=== PATIENT | male | born 1945 | race Caucasian/White ===

== ENCOUNTER → 2018-06-28 07:00 | Outpatient (CLI) | payer MEDICARE, OTHER, SELFPAY ==
[2018-06-28 08:18] LABS: Alanine Aminotransferase 37 IU/L (21-72); Albumin 4.5 g/dL (3.5-5.0); Albumin Globulin Ratio 1.6 (1.0-2.8); Alkaline Phosphatase 68 U/L (38-126); Aspartate Aminotransferase 36 IU/L (17-59); BUN Creatinine Ratio 16.7 (6-22); Bilirubin Total 0.5 mg/dL (0.2-1.3); Blood Urea Nitrogen 35 mg/dL (9-20); Calcium 9.5 mg/dL (8.4-10.2); Carbon Dioxide 27 mmol/L (22-32); Chloride 102 mmol/L (98-107); Cholesterol 244 mg/dL (140-199); Estimated Glomerular Filt Rate 30.9 mL/min (>60); Globulin 2.9 g/dL (1.7-4.1); Glucose 107 mg/dL (80-110); HDL Cholesterol 34 mg/dL (40-60); HEMOLYSIS < 15 (0-50); Potassium 3.8 mmol/L (3.4-5.1); Sodium 139 mmol/L (137-145); Total Protein 7.4 g/dL (6.3-8.2)
[2018-06-28 08:21] LABS: Hematocrit 44.4 % (41-53); Hemoglobin 15.6 g/dL (13.5-17.5); Mean Corpuscular HGB Conc 35.2 % (30-36); Mean Corpuscular Volume 99.4 fL (80-100); Platelet Count 252 X10^3/uL (150-400); Red Blood Cell Count 4.47 X10^6/uL (4.5-5.9); Red Cell Distribution Width 12.7 % (11.6-14.8); White Blood Cell Count 5.7 X10^3/uL (4.5-11.0)
[2018-06-28 08:25] LABS: Triglycerides 1553 mg/dL (35-150)
[2018-06-28 08:38] LABS: Creatinine Urine Random 109.5 mg/dL
[2018-06-28 08:45] LABS: Microalbumi Creatinin Ratio Ur 5.4 ug/mg CR (<30); Microalbumin Urine Random < 0.6 mg/dL (0-1.6)
[2018-06-28 08:54] LABS: Hemoglobin A1C% w Est Avg Glu 6.5 % (4.0-6.0)
[2018-06-28 09:08] LABS: TSH w/ Reflex to FT4 6.13 uIU/mL (0.47-4.68)
[2018-06-28 09:35] LABS: Free T4, Direct Thyroxine 0.74 ng/dL (0.78-2.19)
== END ==
PROVIDERS: PCP Family Medicine; Visit Provider Family Medicine
DX: E11.9 Type 2 diabetes mellitus without complications (principal); E78.5 Hyperlipidemia, unspecified; I10 Essential (primary) hypertension; N18.2 Chronic kidney disease, stage 2 (mild)
CPT/HCPCS: 36415; 80053; 80061; 82043; 82570; 83036; 84439; 84443; 85027

== ENCOUNTER 2018-08-15 06:53 | Day surgery (SDC) | payer MEDICARE, OTHER, SELFPAY ==
[2018-08-15] MEDS: PROPARACAINE 0.5% OPHTH SOL 2 DROPS EYE-OP (07:40)
[2018-08-15] MEDS: CATARACT EYE COMPOUND (10 DROPS/SYRINGE) 3 DROPS EYE-OP (07:47)
[2018-08-15 07:58] VITALS: BP 178/88; PULSE 55; RESP 16; TEMP 36.7; O2SAT 96; BMI 32.0
--- NOTE | 2018-08-15 08:48 | PM.PREOP ---
Pre-operative Note Interval Note History & Physical reviewed/Exam performed by Physician: No Changes to H&P: No
--- NOTE | 2018-08-15 08:48 | PM.OP.1 ---
Operative Date/Time/Diagnoses Pre-op diagnosis: Nuclear cataract right eye Procedure & Clinicians Procedure: Cataract Surgery Same procedure as scheduled: Yes Surgeon: Js Doty Anesthesia Type: MAC +/- and Sedation Operative Notes Procedure in detail: Patient brought to the operating suite. Tetracaine drops placed in the right eye. Patient was prepped and draped in sterile manner. Wire lid speculum was placed in the eye. Betadine drops were placed on the eye. This was irrigated. Lidocaine jelly was placed on the eye. A paracentesis port was created with a side-port blade. 0.1 mL 1% preservative free lidocaine was injected into the anterior chamber. The anterior chamber was deepened with viscoelastic. 2.6 mm keratome was used to create a temporal clear corneal incision. Cystotome and Utrata forceps were used to create continuous tear capsulorrhexis. Balanced salt solution was used to hydro dissect the nucleus. The phacoemulsification handpiece was inserted and the nucleus was removed using the stop and chop technique. The irrigation aspiration handpiece was inserted and the remaining cortex was removed. Anterior chamber was deepened with viscoelastic. An Tadeo ZCB00 intraocular lens with a power of 21.0 was injected into the capsular bag. Irrigation aspiration handpiece was inserted and the remaining viscoelastic was removed. Incision was hydrated with balanced salt solution and found to be leak free with pressure with Weck-Tri sponges. 0.1 mL Vigamox injected anterior chamber. 0.3 mL Kenalog 10 mg was injected subconjunctivally. Lid speculum was removed. The patient left the operating room in excellent condition. Complications: none Condition: stable Disposition: same day surgery
[2018-08-15] MEDS: PHENYLEPHRINE/LIDOCAINE VIAL (OR) 0.2 ML EYE-OP (09:13)
[2018-08-15] MEDS: TRIAMCINOLONE 50 MG/5 ML VIAL INJ (09:13)
[2018-08-15] MEDS: MOXIFLOXACIN OPHTH DROPS 3 ML BOTTLE 2 DROPS INJ (09:13)
[2018-08-15] MEDS: LIDOCAINE JELLY 2% 5 ML 1 APPLIC TOP (09:14)
[2018-08-15] MEDS: CHONDROIDTIN/SOD HYALURONATE 1.05 ML SYRINGE INTRAOCULA (09:14)
[2018-08-15] MEDS: BALANCED SALT IRRIG SOLN NO.2 500 ML, EPINEPHrine 1 MG IRR (09:14)
[2018-08-15] MEDS: TETRACAINE 0.5% OPHTH DROPS 4 ML 2 DROPS EYE-OP (09:14)
[2018-08-15 09:24] VITALS: BP 142/87; PULSE 54; RESP 20; TEMP 36.6; O2SAT 95
== END 2018-08-15 09:31 | disposition home or self-care (01) ==
LOC: OR 06:54
PROVIDERS: PCP Family Medicine; Visit Provider Ophthalmology
DX: H25.11 Age-related nuclear cataract, right eye (principal); E11.9 Type 2 diabetes mellitus without complications; Z79.4 Long term (current) use of insulin; I10 Essential (primary) hypertension
CPT/HCPCS: J0171; J2250; J3010; J3301

== ENCOUNTER 2018-08-29 06:58 | Day surgery (SDC) | payer MEDICARE, OTHER, SELFPAY ==
[2018-08-29] MEDS: PROPARACAINE 0.5% OPHTH SOL 2 DROPS EYE-OP (07:20)
[2018-08-29] MEDS: CATARACT EYE COMPOUND (10 DROPS/SYRINGE) 3 DROPS EYE-OP (07:31)
[2018-08-29 07:35] VITALS: BP 167/89; PULSE 56; RESP 16; TEMP 36.1; O2SAT 97
--- NOTE | 2018-08-29 08:12 | PM.PREOP ---
Pre-operative Note Interval Note History & Physical reviewed/Exam performed by Physician: No Changes to H&P: No
--- NOTE | 2018-08-29 08:12 | PM.OP.1 ---
Operative Date/Time/Diagnoses Pre-op diagnosis: Nuclear Cataract Left eye Post-op diagnosis: same Procedure & Clinicians Surgeon: Js Doty Anesthesia Type: MAC +/- and Sedation Operative Notes Procedure in detail: Patient brought to the operating suite. Tetracaine drops placed in the left eye. Patient was prepped and draped in sterile manner. Wire lid speculum was placed in the eye. Betadine drops were placed on the eye. This was irrigated. Lidocaine jelly was placed on the eye. A paracentesis port was created with a side-port blade. 0.1 mL 1% preservative free lidocaine was injected into the anterior chamber. The anterior chamber was deepened with viscoelastic. 2.6 mm keratome was used to create a temporal clear corneal incision. Cystotome and Utrata forceps were used to create continuous tear capsulorrhexis. Balanced salt solution was used to hydro dissect the nucleus. The phacoemulsification handpiece was inserted and the nucleus was removed using the stop and chop technique. The irrigation aspiration handpiece was inserted and the remaining cortex was removed. Anterior chamber was deepened with viscoelastic. An Tadeo ZCB00 intraocular lens with a power of 21.0 was injected into the capsular bag. Irrigation aspiration handpiece was inserted and the remaining viscoelastic was removed. Incision was hydrated with balanced salt solution and found to be leak free with pressure with Weck-Tri sponges. 0.1 mL Vigamox injected anterior chamber. 0.3 mL Kenalog 10 mg was injected subconjunctivally. Lid speculum was removed. The patient left the operating room in excellent condition. Complications: none Condition: stable Disposition: same day surgery
[2018-08-29] MEDS: MOXIFLOXACIN OPHTH DROPS 3 ML BOTTLE 2 DROPS INJ (08:26)
[2018-08-29] MEDS: TRIAMCINOLONE 50 MG/5 ML VIAL INJ (08:26)
[2018-08-29] MEDS: PHENYLEPHRINE/LIDOCAINE VIAL (OR) 0.2 ML EYE-OP (08:26)
[2018-08-29] MEDS: LIDOCAINE JELLY 2% 5 ML 1 APPLIC TOP (08:27)
[2018-08-29] MEDS: TETRACAINE 0.5% OPHTH DROPS 4 ML 2 DROPS EYE-OP (08:27)
[2018-08-29] MEDS: CHONDROIDTIN/SOD HYALURONATE 1.05 ML SYRINGE INTRAOCULA (08:27)
[2018-08-29] MEDS: BALANCED SALT IRRIG SOLN NO.2 500 ML, EPINEPHrine 1 MG IRR (08:28)
[2018-08-29 08:39] VITALS: BP 139/80; PULSE 75; RESP 16; TEMP 36.6; O2SAT 96
== END 2018-08-29 08:48 | disposition home or self-care (01) ==
LOC: OR 06:59
PROVIDERS: PCP Family Medicine; Visit Provider Ophthalmology
DX: H25.12 Age-related nuclear cataract, left eye (principal); E11.9 Type 2 diabetes mellitus without complications; I10 Essential (primary) hypertension; Z79.4 Long term (current) use of insulin
CPT/HCPCS: J0171; J2250; J3301

== ENCOUNTER → 2018-10-06 06:57 | Outpatient (CLI) | payer MEDICARE, OTHER, SELFPAY ==
[2018-10-06 08:32] LABS: BUN Creatinine Ratio 16.3 (6-22); Blood Urea Nitrogen 31 mg/dL (9-20); Carbon Dioxide 30 mmol/L (22-32); Chloride 104 mmol/L (98-107); Cholesterol 211 mg/dL (140-199); Estimated Glomerular Filt Rate 34.7 mL/min (>60); Glucose 108 mg/dL (80-110); HDL Cholesterol 48 mg/dL (40-60); HEMOLYSIS < 15 (0-50); LDL Cholesterol Calculated 92 mg/dL (<100); Potassium 4.2 mmol/L (3.4-5.1); Sodium 141 mmol/L (137-145); Triglycerides 353 mg/dL (35-150)
[2018-10-06 09:01] LABS: TSH w/ Reflex to FT4 7.74 uIU/mL (0.47-4.68)
[2018-10-06 09:28] LABS: Free T4, Direct Thyroxine 0.83 ng/dL (0.78-2.19)
== END ==
PROVIDERS: PCP Family Medicine; Visit Provider Family Medicine
DX: E11.9 Type 2 diabetes mellitus without complications (principal); N18.2 Chronic kidney disease, stage 2 (mild); I12.9 Hypertensive chronic kidney disease with stage 1 through stage 4 chronic kidney disease, or unspecified chronic kidney disease
CPT/HCPCS: 36415; 80048; 80061; 83036; 84439; 84443

== ENCOUNTER → 2019-01-01 06:59 | Outpatient (CLI) | payer MEDICARE, OTHER, SELFPAY ==
[2019-01-01 08:25] LABS: Hemoglobin A1C% w Est Avg Glu 6.1 % (4.0-6.0)
[2019-01-01 08:55] LABS: BUN Creatinine Ratio 18.8 (6-22); Blood Urea Nitrogen 32 mg/dL (9-20); Calcium 9.8 mg/dL (8.4-10.2); Carbon Dioxide 27 mmol/L (22-32); Chloride 103 mmol/L (98-107); Estimated Glomerular Filt Rate 39.5 mL/min (>60); Glucose 145 mg/dL (80-110); HEMOLYSIS 15 (0-50); Potassium 4.4 mmol/L (3.4-5.1); Sodium 139 mmol/L (137-145)
== END ==
PROVIDERS: PCP Family Medicine; Visit Provider Family Medicine
DX: E11.9 Type 2 diabetes mellitus without complications (principal)
CPT/HCPCS: 36415; 80048; 83036; 84443

== ENCOUNTER → 2019-07-03 07:00 | Outpatient (CLI) | payer MEDICARE, OTHER, SELFPAY ==
[2019-07-03 07:55] LABS: Blood Urea Nitrogen 27 mg/dL (9-20); Calcium 9.9 mg/dL (8.4-10.2); Carbon Dioxide 27 mmol/L (22-32); Chloride 106 mmol/L (98-107); Estimated Glomerular Filt Rate 36.9 mL/min (>60); Glucose 93 mg/dL (80-110); HEMOLYSIS < 15 (0-50); Potassium 3.9 mmol/L (3.4-5.1); Sodium 140 mmol/L (137-145)
[2019-07-03 08:09] LABS: Hemoglobin A1C% w Est Avg Glu 6.8 % (4.0-6.0)
== END ==
PROVIDERS: PCP Family Medicine; Referring Provider Family Medicine; Visit Provider Family Medicine
DX: E03.9 Hypothyroidism, unspecified (principal); E11.9 Type 2 diabetes mellitus without complications; I10 Essential (primary) hypertension; N18.2 Chronic kidney disease, stage 2 (mild)
CPT/HCPCS: 36415; 80048; 83036; 84443

== ENCOUNTER → 2019-10-09 07:18 | Outpatient (CLI) | payer MEDICARE, OTHER, SELFPAY ==
[2019-10-09 08:10] LABS: Hematocrit 42.2 % (41-53); Hemoglobin 15.3 g/dL (13.5-17.5); Mean Corpuscular HGB Conc 36.1 % (30-36); Mean Corpuscular Hemoglobin 36.2 PG (26-34); Mean Corpuscular Volume 100.3 fL (80-100); Platelet Count 251 X10^3/uL (150-400); Red Blood Cell Count 4.21 X10^6/uL (4.5-5.9); Red Cell Distribution Width 12.7 % (11.6-14.8)
[2019-10-09 08:21] LABS: Alanine Aminotransferase 30 IU/L (<50); Albumin 4.5 g/dL (3.5-5.0); Albumin Globulin Ratio 1.5 (1.0-2.8); Alkaline Phosphatase 76 U/L (38-126); Aspartate Aminotransferase 38 IU/L (17-59); Bilirubin Total 1.2 mg/dL (0.2-1.3); Blood Urea Nitrogen 41 mg/dL (9-20); Carbon Dioxide 23 mmol/L (22-32); Chloride 106 mmol/L (98-107); Cholesterol 278 mg/dL (140-199); Estimated Glomerular Filt Rate 33.6 mL/min (>60); Glucose 168 mg/dL (80-110); HDL Cholesterol 42 mg/dL (40-60); HEMOLYSIS < 15 (0-50); Potassium 4.4 mmol/L (3.4-5.1); Sodium 139 mmol/L (137-145); Total Protein 7.5 g/dL (6.3-8.2)
[2019-10-09 08:36] LABS: Hemoglobin A1C% w Est Avg Glu 6.8 % (4.0-6.0)
[2019-10-09 08:44] LABS: Triglycerides 753 mg/dL (35-150)
[2019-10-09 10:03] LABS: Creatinine Urine Random 107.1 mg/dL
[2019-10-09 10:07] LABS: Microalbumi Creatinin Ratio Ur 29.8 ug/mg CR (<30); Microalbumin Urine Random 3.2 mg/dL (0-1.6)
[2019-10-09 10:35] LABS: TSH w/ Reflex to FT4 5.02 uIU/mL (0.47-4.68)
[2019-10-09 11:01] LABS: Free T4, Direct Thyroxine 0.79 ng/dL (0.78-2.19)
[2019-10-09 11:22] LABS: Neutrophils Absolute Manual 3430 /uL (3000-5900); RBC Morphology Normal Morphology; Total Cells Counted 100
== END ==
PROVIDERS: PCP Family Medicine; Referring Provider Family Medicine; Visit Provider Family Medicine
DX: E03.9 Hypothyroidism, unspecified (principal); E11.9 Type 2 diabetes mellitus without complications; E78.5 Hyperlipidemia, unspecified; N18.2 Chronic kidney disease, stage 2 (mild)
CPT/HCPCS: 36415; 80053; 80061; 82043; 82570; 83036; 84439; 84443; 85025

== ENCOUNTER → 2020-04-15 06:57 | Outpatient (CLI) | payer MEDICARE, OTHER, SELFPAY ==
[2020-04-15 08:22] LABS: Add Manual Diff / Slide Review NO; Basophils Absolute Auto 100 /uL (0-100); Basophils Percent Auto 1.5 % (0-2); Eosinophils Absolute Auto 300 /uL (0-450); Eosinophils Percent Auto 5.5 % (2-4); Hematocrit 41.5 % (41-53); Hemoglobin 14.5 g/dL (13.5-17.5); Lymphocytes Absolute Auto 1900 /uL (1100-4500); Lymphocytes Percent Auto 32.4 % (25-40); Mean Corpuscular Hemoglobin 35.3 PG (26-34); Mean Corpuscular Volume 100.8 fL (80-100); Monocytes Absolute Auto 900 /uL (0-900); Monocytes Percent Auto 14.8 % (3-14); Neutrophils Absolute Auto 2700 /uL (1500-7000); Neutrophils Percent Auto 45.8 % (50-75); Platelet Count 240 X10^3/uL (150-400); Red Blood Cell Count 4.11 X10^6/uL (4.5-5.9); Red Cell Distribution Width 12.9 % (11.6-14.8); White Blood Cell Count 5.9 X10^3/uL (4.5-11.0)
[2020-04-15 08:29] LABS: Alanine Aminotransferase 30 IU/L (<50); Albumin 4.2 g/dL (3.5-5.0); Albumin Globulin Ratio 1.6 (1.0-2.8); Alkaline Phosphatase 80 U/L (38-126); Aspartate Aminotransferase 33 IU/L (17-59); BUN Creatinine Ratio 17.1 (6-22); Bilirubin Total 0.9 mg/dL (0.2-1.3); Blood Urea Nitrogen 29 mg/dL (9-20); Calcium 9.6 mg/dL (8.4-10.2); Carbon Dioxide 28 mmol/L (22-32); Chloride 106 mmol/L (98-107); Cholesterol 276 mg/dL (140-199); Estimated Glomerular Filt Rate 39.4 mL/min (>60); Globulin 2.7 g/dL (1.7-4.1); Glucose 128 mg/dL (80-110); HDL Cholesterol 38 mg/dL (40-60); Potassium 4.1 mmol/L (3.4-5.1); Sodium 138 mmol/L (137-145); Total Protein 6.9 g/dL (6.3-8.2)
[2020-04-15 08:35] LABS: Hemoglobin A1C% w Est Avg Glu 7.1 % (4.0-6.0)
[2020-04-15 08:55] LABS: TSH w/ Reflex to FT4 4.53 uIU/mL (0.47-4.68)
[2020-04-15 14:14] LABS: Triglycerides 1252 mg/dL (35-150)
[2020-04-16 13:54] LABS: HEMOLYSIS 17 (0-50)
== END ==
PROVIDERS: PCP Family Medicine; Referring Provider Family Medicine; Visit Provider Family Medicine
DX: E03.9 Hypothyroidism, unspecified (principal); E11.9 Type 2 diabetes mellitus without complications; E78.5 Hyperlipidemia, unspecified; I10 Essential (primary) hypertension; N18.2 Chronic kidney disease, stage 2 (mild)
CPT/HCPCS: 36415; 80053; 80061; 83036; 84443; 85025

== ENCOUNTER → 2020-10-16 06:46 | Outpatient (CLI) | payer MEDICARE, OTHER, SELFPAY ==
[2020-10-16 08:08] LABS: Add Manual Diff / Slide Review NO; Basophils Absolute Auto 100 /uL (0-100); Eosinophils Absolute Auto 400 /uL (0-450); Eosinophils Percent Auto 5.4 % (2-4); Hematocrit 43.5 % (41-53); Hemoglobin 15.4 g/dL (13.5-17.5); Lymphocytes Absolute Auto 2200 /uL (1100-4500); Mean Corpuscular HGB Conc 35.5 % (30-36); Mean Corpuscular Hemoglobin 35.7 PG (26-34); Mean Corpuscular Volume 100.7 fL (80-100); Monocytes Absolute Auto 1300 /uL (0-900); Monocytes Percent Auto 17.6 % (3-14); Neutrophils Absolute Auto 3400 /uL (1500-7000); Platelet Count 233 X10^3/uL (150-400); Red Blood Cell Count 4.32 X10^6/uL (4.5-5.9); Red Cell Distribution Width 12.9 % (11.6-14.8); White Blood Cell Count 7.3 X10^3/uL (4.5-11.0)
[2020-10-16 08:30] LABS: Creatinine Urine Random 113.1 mg/dL
[2020-10-16 08:31] LABS: Alanine Aminotransferase 36 IU/L (<50); Albumin 4.4 g/dL (3.5-5.0); Albumin Globulin Ratio 1.7 (1.0-2.8); Alkaline Phosphatase 68 U/L (38-126); Aspartate Aminotransferase 36 IU/L (17-59); BUN Creatinine Ratio 15.2 (6-22); Blood Urea Nitrogen 29 mg/dL (9-20); Calcium 10.3 mg/dL (8.4-10.2); Carbon Dioxide 24 mmol/L (22-32); Chloride 106 mmol/L (98-107); Cholesterol 248 mg/dL (140-199); Estimated Glomerular Filt Rate 34.3 mL/min (>60); Globulin 2.6 g/dL (1.7-4.1); Glucose 104 mg/dL (80-110); HDL Cholesterol 41 mg/dL (40-60); HEMOLYSIS < 15 (0-50); Potassium 4.4 mmol/L (3.4-5.1); Sodium 141 mmol/L (137-145)
[2020-10-16 08:33] LABS: Hemoglobin A1C% w Est Avg Glu 6.9 % (4.0-6.0)
[2020-10-16 08:34] LABS: Microalbumin Urine Random 0.8 mg/dL (0-1.6)
[2020-10-16 08:39] LABS: Triglycerides 632 mg/dL (35-150)
[2020-10-16 08:45] LABS: Thyroid Stimulating Hormone 6.36 uIU/mL (0.47-4.68)
== END ==
PROVIDERS: PCP Family Medicine; Referring Provider Family Medicine; Visit Provider Family Medicine
DX: E03.9 Hypothyroidism, unspecified (principal); E11.9 Type 2 diabetes mellitus without complications; E78.2 Mixed hyperlipidemia; I10 Essential (primary) hypertension; I50.20 Unspecified systolic (congestive) heart failure; N18.2 Chronic kidney disease, stage 2 (mild)
CPT/HCPCS: 36415; 80053; 80061; 82043; 82570; 83036; 84443; 85025

== ENCOUNTER → 2021-04-22 07:06 | Outpatient (CLI) | payer MEDICARE, OTHER, SELFPAY ==
[2021-04-22 08:50] LABS: Hemoglobin A1C% w Est Avg Glu 6.3 % (4.0-6.0)
[2021-04-22 08:58] LABS: BUN Creatinine Ratio 14.2 (6-22); Blood Urea Nitrogen 26 mg/dL (9-20); Calcium 10.1 mg/dL (8.4-10.2); Carbon Dioxide 28 mmol/L (22-32); Chloride 105 mmol/L (98-107); Estimated Glomerular Filt Rate 36.1 mL/min (>60); Glucose 139 mg/dL (80-110); HEMOLYSIS < 15 (0-50); Potassium 4.5 mmol/L (3.4-5.1); Sodium 139 mmol/L (137-145)
== END ==
PROVIDERS: PCP Family Medicine; Referring Provider Family Medicine; Visit Provider Family Medicine
DX: I10 Essential (primary) hypertension (principal); E03.9 Hypothyroidism, unspecified
CPT/HCPCS: 36415; 80048; 83036; 84443

== ENCOUNTER → 2021-10-14 06:59 | Outpatient (CLI) | payer MEDICARE, OTHER, SELFPAY ==
[2021-10-14 07:47] LABS: BUN Creatinine Ratio 16.2 (6-22); Blood Urea Nitrogen 28 mg/dL (9-20); Calcium 9.7 mg/dL (8.4-10.2); Carbon Dioxide 27 mmol/L (22-32); Chloride 106 mmol/L (98-107); Cholesterol 187 mg/dL (140-199); Estimated Glomerular Filt Rate 40 mL/min (>60); Glucose 101 mg/dL (80-110); HDL Cholesterol 46 mg/dL (40-60); HEMOLYSIS < 15 (0-50); LDL Cholesterol Calculated 69 mg/dL (<100); Potassium 4.5 mmol/L (3.4-5.1); Sodium 142 mmol/L (137-145); Triglycerides 360 mg/dL (35-150)
[2021-10-14 07:50] LABS: Hemoglobin A1C% w Est Avg Glu 6.8 % (4.0-6.0)
[2021-10-14 08:18] LABS: Thyroid Stimulating Hormone 2.75 uIU/mL (0.47-4.68)
== END ==
PROVIDERS: PCP Family Medicine; Referring Provider Family Medicine; Visit Provider Family Medicine
DX: E11.9 Type 2 diabetes mellitus without complications (principal); E78.2 Mixed hyperlipidemia; I10 Essential (primary) hypertension; Z79.4 Long term (current) use of insulin; E03.9 Hypothyroidism, unspecified
CPT/HCPCS: 36415; 80048; 80061; 83036; 84443

== ENCOUNTER → 2022-04-12 06:59 | Outpatient (CLI) | payer MEDICARE, OTHER, SELFPAY ==
[2022-04-12 08:55] LABS: Add Manual Diff / Slide Review NO; Basophils Absolute Auto 100 /uL (0-100); Basophils Percent Auto 1.4 % (0-2); Eosinophils Absolute Auto 400 /uL (0-450); Eosinophils Percent Auto 5.4 % (2-4); Hemoglobin 14.9 g/dL (13.5-17.5); Lymphocytes Absolute Auto 2600 /uL (1100-4500); Lymphocytes Percent Auto 33.4 % (25-40); Mean Corpuscular HGB Conc 35.4 % (30-36); Mean Corpuscular Hemoglobin 35.6 PG (26-34); Mean Corpuscular Volume 100.5 fL (80-100); Monocytes Absolute Auto 1200 /uL (0-900); Neutrophils Absolute Auto 3500 /uL (1500-7000); Neutrophils Percent Auto 44.8 % (50-75); Platelet Count 251 X10^3/uL (150-400); Red Blood Cell Count 4.18 X10^6/uL (4.5-5.9); Red Cell Distribution Width 12.8 % (11.6-14.8); White Blood Cell Count 7.8 X10^3/uL (4.5-11.0)
[2022-04-12 09:32] LABS: Alanine Aminotransferase 34 IU/L (<50); Albumin 4.3 g/dL (3.5-5.0); Alkaline Phosphatase 75 U/L (38-126); Aspartate Aminotransferase 30 IU/L (17-59); BUN Creatinine Ratio 14.3 (6-22); Bilirubin Total 0.8 mg/dL (0.2-1.3); Blood Urea Nitrogen 26 mg/dL (9-20); Calcium 9.8 mg/dL (8.4-10.2); Carbon Dioxide 25 mmol/L (22-32); Chloride 105 mmol/L (98-107); Cholesterol 205 mg/dL (140-199); Estimated Glomerular Filt Rate 38 mL/min (>60); Globulin 2.2 g/dL (1.7-4.1); Glucose 112 mg/dL (80-110); HDL Cholesterol 44 mg/dL (40-60); HEMOLYSIS < 15 (0-50); Potassium 4.2 mmol/L (3.4-5.1); Sodium 139 mmol/L (137-145); Total Protein 6.5 g/dL (6.3-8.2); Triglycerides 432 mg/dL (35-150)
[2022-04-12 10:03] LABS: TSH w/ Reflex to FT4 3.36 uIU/mL (0.47-4.68)
[2022-04-12 13:47] LABS: Creatinine Urine Random 94.6 mg/dL
[2022-04-12 13:50] LABS: Microalbumi Creatinin Ratio Ur 7.3 ug/mg CR (<30); Microalbumin Urine Random 0.7 mg/dL (0-1.6)
[2022-04-13 18:22] LABS: Hemoglobin A1C% w Est Avg Glu 7.1 % (4.0-6.0)
== END ==
PROVIDERS: PCP Family Medicine; Referring Provider Family Medicine; Visit Provider Family Medicine
DX: E11.9 Type 2 diabetes mellitus without complications (principal)
CPT/HCPCS: 36415; 80053; 80061; 82043; 82570; 83036; 84443; 85025

== ENCOUNTER → 2022-10-15 06:57 | Outpatient (CLI) | payer MEDICARE, OTHER, SELFPAY ==
[2022-10-15 08:07] LABS: BUN Creatinine Ratio 14.3 (6-22); Blood Urea Nitrogen 28 mg/dL (9-20); Calcium 9.9 mg/dL (8.4-10.2); Carbon Dioxide 26 mmol/L (22-32); Chloride 104 mmol/L (98-107); Estimated Glomerular Filt Rate 34 mL/min (>60); Glucose 83 mg/dL (80-110); HEMOLYSIS < 15 (0-50); Potassium 4.7 mmol/L (3.4-5.1); Sodium 139 mmol/L (137-145)
[2022-10-16 03:36] LABS: x Labcorp Estim. Avg Glu (eAG) 140 mg/dL (.); x Labcorp Hemoglobin A1c 6.5 % (4.8-5.6)
== END ==
PROVIDERS: PCP Family Medicine; Referring Provider Family Medicine; Visit Provider Family Medicine
DX: E11.9 Type 2 diabetes mellitus without complications (principal)
CPT/HCPCS: 36415; 80048; 83036

== ENCOUNTER → 2022-12-09 | Outpatient (CLI) | payer MEDICARE, OTHER, SELFPAY ==
--- NOTE | 2022-12-09 14:56 | DI.RAD.S_ITS ---
PROCEDURE: XR KNEE RT 3V INDICATIONS: right knee medial pain TECHNIQUE: 3 views of the knee were acquired. COMPARISON: None. FINDINGS: Bones: No fractures or dislocations. No suspicious bony lesions. Tricompartmental periarticular osteophyte formation. Soft tissues: No joint effusion. No suspicious soft tissue calcifications. IMPRESSION: Minimal periarticular osteophyte formation; otherwise definite radiographic abnormality. If pain persists with conservative management, consider cross sectional imaging such as CT or MRI for further assessment. Dictated by: Terence RAMIRES Interpreted: Tk Holley MD on 12/09/2022 at 20:39 Transcribed by: SUSAN on 12/09/2022 at 20:40 Approved by: Tk Holley M.D. on 12/20/2022 at 17:44
== END ==
PROVIDERS: PCP Family Medicine; Referring Provider Family Medicine; Visit Provider Family Medicine
DX: M25.561 Pain in right knee (principal)
CPT/HCPCS: 73562

== ENCOUNTER → 2023-04-14 06:51 | Outpatient (CLI) | payer MEDICARE, OTHER, SELFPAY ==
[2023-04-14 08:43] LABS: Hemoglobin A1C% w Est Avg Glu 6.7 % (4.0-6.0)
[2023-04-14 09:28] LABS: Creatinine Urine Random 102.1 mg/dL
[2023-04-14 09:32] LABS: Microalbumi Creatinin Ratio Ur 8.8 ug/mg CR (<30); Microalbumin Urine Random 0.9 mg/dL (0-1.6)
== END ==
PROVIDERS: PCP Family Medicine; Referring Provider Family Medicine; Visit Provider Family Medicine
DX: E11.9 Type 2 diabetes mellitus without complications (principal); Z79.4 Long term (current) use of insulin
CPT/HCPCS: 36415; 82043; 82570; 83036

== ENCOUNTER → 2023-06-07 15:12 | Outpatient (CLI) | payer MEDICARE, OTHER, SELFPAY | LOC: RESP 15:14 | PROVIDERS: PCP Family Medicine; Referring Provider Orthopaedic Surgery Foot and Ankle Surgery; Visit Provider Orthopaedic Surgery Foot and Ankle Surgery | DX: Z01.818 Encounter for other preprocedural examination (principal) | CPT/HCPCS: 93005 ==

== ENCOUNTER → 2023-06-24 10:31 | Outpatient (CLI) | payer MEDICARE, OTHER, SELFPAY ==
[2023-06-24 12:24] LABS: Hemoglobin A1C% w Est Avg Glu 6.7 % (4.0-6.0)
[2023-06-24 12:25] LABS: Add Manual Diff / Slide Review NO; Basophils Absolute Auto 100 /uL (0-100); Basophils Percent Auto 1.2 % (0-2); Eosinophils Absolute Auto 300 /uL (0-450); Eosinophils Percent Auto 3.7 % (2-4); Hematocrit 42.1 % (41-53); Hemoglobin 14.9 g/dL (13.5-17.5); Lymphocytes Absolute Auto 2500 /uL (1100-4500); Lymphocytes Percent Auto 29.9 % (25-40); Mean Corpuscular HGB Conc 35.3 % (30-36); Mean Corpuscular Hemoglobin 35.2 PG (26-34); Mean Corpuscular Volume 99.6 fL (80-100); Monocytes Absolute Auto 1000 /uL (0-900); Neutrophils Absolute Auto 4500 /uL (1500-7000); Neutrophils Percent Auto 53.2 % (50-75); Platelet Count 230 X10^3/uL (150-400); Red Blood Cell Count 4.23 X10^6/uL (4.5-5.9); Red Cell Distribution Width 13.3 % (11.6-14.8); White Blood Cell Count 8.4 X10^3/uL (4.5-11.0)
[2023-06-24 12:44] LABS: Alanine Aminotransferase 27 IU/L (<50); Albumin 4.3 g/dL (3.5-5.0); Albumin Globulin Ratio 1.5 (1.0-2.8); Alkaline Phosphatase 72 U/L (38-126); Aspartate Aminotransferase 27 IU/L (17-59); BUN Creatinine Ratio 16.8 (6-22); Bilirubin Total 1.5 mg/dL (0.2-1.3); Blood Urea Nitrogen 30 mg/dL (9-20); Calcium 9.5 mg/dL (8.4-10.2); Carbon Dioxide 22 mmol/L (22-32); Chloride 105 mmol/L (98-107); Cholesterol 188 mg/dL (140-199); Estimated Glomerular Filt Rate 38 mL/min (>60); Globulin 2.9 g/dL (1.7-4.1); Glucose 169 mg/dL (80-110); HDL Cholesterol 46 mg/dL (40-60); HEMOLYSIS < 15 (0-50); Sodium 140 mmol/L (137-145); Total Protein 7.2 g/dL (6.3-8.2); Triglycerides 447 mg/dL (35-150)
== END ==
PROVIDERS: PCP Family Medicine; Referring Provider Family Medicine; Visit Provider Family Medicine
DX: D64.9 Anemia, unspecified (principal); E11.9 Type 2 diabetes mellitus without complications; N18.9 Chronic kidney disease, unspecified; I10 Essential (primary) hypertension
CPT/HCPCS: 36415; 80053; 80061; 83036; 85025

== ENCOUNTER → 2023-10-18 06:48 | Outpatient (CLI) | payer MEDICARE, OTHER, SELFPAY ==
[2023-10-18 08:43] LABS: Add Manual Diff / Slide Review NO; Basophils Absolute Auto 200 /uL (0-100); Basophils Percent Auto 1.8 % (0-2); Eosinophils Absolute Auto 600 /uL (0-450); Eosinophils Percent Auto 6.8 % (2-4); Hematocrit 41.1 % (41-53); Hemoglobin 14.6 g/dL (13.5-17.5); Lymphocytes Absolute Auto 2800 /uL (1100-4500); Lymphocytes Percent Auto 32.3 % (25-40); Mean Corpuscular HGB Conc 35.6 % (30-36); Mean Corpuscular Hemoglobin 35.7 PG (26-34); Mean Corpuscular Volume 100.5 fL (80-100); Monocytes Absolute Auto 1200 /uL (0-900); Monocytes Percent Auto 13.7 % (3-14); Neutrophils Absolute Auto 4000 /uL (1500-7000); Neutrophils Percent Auto 45.4 % (50-75); Platelet Count 261 X10^3/uL (150-400); Red Blood Cell Count 4.09 X10^6/uL (4.5-5.9); Red Cell Distribution Width 13.6 % (11.6-14.8); White Blood Cell Count 8.8 X10^3/uL (4.5-11.0)
[2023-10-18 08:56] LABS: Hemoglobin A1C% w Est Avg Glu 6.8 % (4.0-6.0)
[2023-10-18 09:20] LABS: Alanine Aminotransferase 26 IU/L (<50); Albumin 4.3 g/dL (3.5-5.0); Alkaline Phosphatase 85 U/L (38-126); Aspartate Aminotransferase 30 IU/L (17-59); BUN Creatinine Ratio 16.5 (6-22); Bilirubin Total 0.8 mg/dL (0.2-1.3); Blood Urea Nitrogen 33 mg/dL (9-20); Calcium 9.7 mg/dL (8.4-10.2); Carbon Dioxide 26 mmol/L (22-32); Chloride 107 mmol/L (98-107); Cholesterol 203 mg/dL (140-199); Estimated Glomerular Filt Rate 33 mL/min (>60); Globulin 2.2 g/dL (1.7-4.1); Glucose 146 mg/dL (80-110); HDL Cholesterol 44 mg/dL (40-60); HEMOLYSIS < 15 (0-50); Potassium 4.6 mmol/L (3.4-5.1); Sodium 140 mmol/L (137-145); Total Protein 6.5 g/dL (6.3-8.2)
[2023-10-18 09:37] LABS: Triglycerides 677 mg/dL (35-150)
[2023-10-18 10:51] LABS: Creatinine Urine Random 111.09 mg/dL
[2023-10-18 10:58] LABS: Microalbumin Urine Random 1.3 mg/dL (0-1.6)
== END ==
PROVIDERS: PCP Family Medicine; Referring Provider Family Medicine; Visit Provider Family Medicine
DX: D64.9 Anemia, unspecified (principal); E11.9 Type 2 diabetes mellitus without complications
CPT/HCPCS: 36415; 80053; 80061; 82043; 82570; 83036; 85025

== ENCOUNTER → 2024-04-10 07:02 | Outpatient (CLI) | payer MEDICARE, OTHER, SELFPAY ==
[2024-04-10 11:13] LABS: Hemoglobin A1C% w Est Avg Glu 6.1 % (4.0-6.0)
[2024-04-10 13:22] LABS: BUN Creatinine Ratio 15.1 (6-22); Blood Urea Nitrogen 33 mg/dL (9-20); Calcium 9.7 mg/dL (8.4-10.2); Carbon Dioxide 22 mmol/L (22-32); Chloride 109 mmol/L (98-107); Estimated Glomerular Filt Rate 30 mL/min (>60); Glucose 117 mg/dL (80-110); HEMOLYSIS 25 (0-50); Potassium 4.7 mmol/L (3.4-5.1); Sodium 137 mmol/L (137-145)
== END ==
PROVIDERS: PCP Family Medicine; Referring Provider Family Medicine; Visit Provider Family Medicine
DX: E11.9 Type 2 diabetes mellitus without complications (principal)
CPT/HCPCS: 36415; 80048; 83036

== ENCOUNTER → 2024-05-08 07:41 | Outpatient (CLI) | payer MEDICARE, OTHER, SELFPAY ==
--- NOTE | 2024-05-08 07:44 | DI.ECHO.S_ITS ---
[facility] : : [id number] : [place] : : [id number] : : Phone: [phone] Echocardiogram Report + + :Name: OCTAVIO LABOY Study Date: 05/08/2024 Height: 68 in : :[facility] ReadingLocation: Weight: 205 lb : : Gender: Male BSA: 2.1 m2 : :: 1945 Age: 78 yrs BP: 160/90 mmHg: :Reason For Study: COMPARE TO PREVIOUS ECHO RESULTS : :Ordering Physician: CRYSTAL, : :YULISA Performed By: Maria Eugenia Boston : :Referring: YULISA ROJAS : + + Interpretation Summary 1) Normal left ventricular thickness, size, and systolic function (EF 60-65%). 2) Mildly enlarged right ventricle with normal function. 3) No significant valvular abnormalities. 4) There is mild aortic stenosis (valve area 1.8cm2, mean gradient 8mmHg). 5) Compared to the Echo done 09/12/2011, mild aortic stenosis is present on this study/ Procedure: A two-dimensional transthoracic echocardiogram with color flow and Doppler was performed. The study quality was technically difficult. Comparison is made with the echocardiogram of 09/22/2011. The patient was in sinus bradycardia with heart rates between 47-53 bpm during the exam. Left Ventricle: The left ventricle is normal in size. Proximal septal thickening is noted. The ejection fraction is estimated to be 60-65%. Septal bounce present. Right Ventricle: The right ventricle is mildly dilated. The right ventricular systolic function is normal. Atria: The left atrium is mildly dilated. Right atrial size is normal. There is no Doppler evidence for an interatrial shunt. Mitral Valve: The mitral valve leaflets appear to open well. There is mild mitral regurgitation. Aortic Valve: The aortic valve is trileaflet. There is mild aortic valve sclerosis. The aortic valve is mildly calcified. The peak aortic velocity is 1.8 m/sec. The aortic valve mean gradient is 8 mmHg. The calculated aortic valve area is 1.8 cm2. There is mild aortic stenosis. No aortic regurgitation is present. Tricuspid Valve: The tricuspid valve leaflets are thin and pliable. There is trace tricuspid regurgitation. The right ventricular systolic pressure is estimated to be at least 24 mmHg based on an estimated right atrial pressure of 3 mm Hg. Pulmonic Valve: The pulmonic valve is not well seen, but is grossly normal. There is trace pulmonic regurgitation. Great Vessels: The aortic root is normal size. The dimensions of the ascending aorta are normal. The IVC is of normal diameter and collapses greater than 50% with a sniff. This suggests a low right atrial pressure of 3 mm Hg. Pericardium/ Pleura There is no pericardial effusion. There is no pleural effusion. MMode/2D Measurements & Calculations LVIDd: 4.2 cm LVOT diam: 2.0 cm LVIDs: 2.7 cm Ao root diam: 3.0 cm FS: 35.8 % asc Aorta Diam: 3.6 cm IVSd: 0.93 cm Ao Arch Diam (Prox Trans): 3.2 cm LVPWd: 0.96 cm LV padilla. diameter/BSA (cm/m^2): 2.0 LV sys. diameter/BSA (cm/m^2): 1.3 LA A2 area: 24.6 cm2 RA long axis: 5.6 cm LA A4 area: 22.7 cm2 RA area: 17.2 cm2 LA length (vol): 6.0 cm RA vol: 44.7 ml LA vol: 78.8 ml RA : 21.6 ml/m2 LA vol index: 38.2 ml/m2 IVC diam: 1.9 cm RVD1 (basal): 4.3 cm RVD2 (mid): 3.9 cm TAPSE: 1.9 cm Doppler Measurements & Calculations Ao V2 max: 184.1 cm/sec LVOT Max Jaime: 103.2 cm/sec Ao V2 mean: 130.2 cm/sec LV V1 max P.3 mmHg Ao max P.8 mmHg LV V1 VTI: 30.2 cm Ao mean P.1 mmHg MARISOL(I,D): 2.1 cm2 Ao V2 VTI: 45.8 cm MARISOL(V,D): 1.8 cm2 sev ratio: 0.66 MARISOL indexed to BSA (cm^2/m^2): 1.0 MV E max jaime: 74.1 cm/sec TR max jaime: 229.4 cm/sec MV A max jaime: 80.2 cm/sec TR max P.1 mmHg MV E/A: 0.92 PA V2 max: 104.6 cm/sec Med Peak E' Jaime: 4.9 cm/sec PA V2 mean: 74.9 cm/sec E/E' med: 15.1 PA mean P.4 mmHg Lat Peak E' Jaime: 7.2 cm/sec PA pr(Accel): 51.6 mmHg E/E' lat: 10.2 E/e' average: 12.7 MV dec time: 0.19 sec SV(LVOT): 97.0 ml Reading Physician:03:07 PM
== END ==
PROVIDERS: PCP Family Medicine; Referring Provider Family Medicine; Visit Provider Family Medicine
DX: I08.0 Rheumatic disorders of both mitral and aortic valves (principal); I50.20 Unspecified systolic (congestive) heart failure
CPT/HCPCS: 93306

== ENCOUNTER → 2024-08-03 11:41 | Outpatient (CLI) | payer MEDICARE, OTHER, SELFPAY | LOC: LAB 11:42 | PROVIDERS: PCP Family Medicine; Referring Provider Family Medicine; Visit Provider Family Medicine | DX: R19.7 Diarrhea, unspecified (principal) | CPT/HCPCS: 83993; 87177; 87205 ==

== ENCOUNTER 2024-09-04 16:28 | Inpatient (IN) | payer MEDICARE, OTHER, SELFPAY ==
[2024-09-04] VITALS (23 sets, daily range): BP systolic 103–184; BP diastolic 58–92; PULSE 87–109; RESP 18–36; TEMP 37–39.4; O2SAT 90–94; BMI 31.1
--- NOTE | 2024-09-04 16:57 | EKG_ITS ---
[address] [address] Test Date: 2024-09-04 Pat Name: Jin Mayer Department: Room: Gender: Male [employer] Clerk: : 1945 Requested By: Order Number: [id number] Reading MD: Sam Betts Measurements Intervals Eldred Rate: 91 P: 33 NV: 178 QRS: 24 QRSD: 94 T: -13 QT: 360 QTc: 442 Interpretive Statements Sinus rhythm with premature atrial complexes Cannot rule out Inferior infarct , age undetermined Electronically Signed On 09-05-2024 17:39:53 PDT by Sam Betts
--- NOTE | 2024-09-04 17:00 | DI.RAD.S_ITS ---
PROCEDURE: XR CHEST 1V INDICATIONS: chest pain TECHNIQUE: One view of the chest was acquired. COMPARISON: No previous study is available for comparison at the time of this dictation. FINDINGS: Surgical changes and devices: Dense material projects over the left lower chest wall. Lungs and pleura: Lungs are clear. No pleural effusions or pneumothorax. Mediastinum: Mediastinal contours appear normal. Heart size is normal. Bones and chest wall: No suspicious bony lesions. Overlying soft tissues appear unremarkable. IMPRESSION: Presumed postsurgical or posttreatment changes in the left chest. No acute cardiopulmonary abnormality is seen. Approved by: Wilver Hinds M.D. on 09/04/2024 at 17:25
[2024-09-04 17:12] LABS: Add Manual Diff / Slide Review NO; Basophils Absolute Auto 100 /uL (0-100); Basophils Percent Auto 0.9 % (0-2); Eosinophils Absolute Auto 0 /uL (0-450); Eosinophils Percent Auto 0.2 % (2-4); Hematocrit 44.7 % (41-53); Hemoglobin 15.7 g/dL (13.5-17.5); Lymphocytes Absolute Auto 2000 /uL (1100-4500); Lymphocytes Percent Auto 15.1 % (25-40); Mean Corpuscular Hemoglobin 35.5 PG (26-34); Mean Corpuscular Volume 101.4 fL (80-100); Monocytes Absolute Auto 800 /uL (0-900); Monocytes Percent Auto 5.9 % (3-14); Neutrophils Absolute Auto 10600 /uL (1500-7000); Neutrophils Percent Auto 77.9 % (50-75); Platelet Count 276 X10^3/uL (150-400); Prothrombin Time 10.9 SECONDS (9.4-12.5); Red Blood Cell Count 4.41 X10^6/uL (4.5-5.9); Red Cell Distribution Width 13.5 % (11.6-14.8); White Blood Cell Count 13.5 X10^3/uL (4.5-11.0)
[2024-09-04 17:15] LABS: PTT Partial Thromboplastin Tim 25 SECONDS (25.1-36.5)
[2024-09-04 17:18] LABS: Alanine Aminotransferase 35 IU/L (<50); Albumin 4.6 g/dL (3.5-5.0); Albumin Globulin Ratio 1.8 (1.0-2.8); Alkaline Phosphatase 72 U/L (38-126); Aspartate Aminotransferase 38 IU/L (17-59); BUN Creatinine Ratio 16.3 (6-22); Bilirubin Total 1.4 mg/dL (0.2-1.3); Blood Urea Nitrogen 28 mg/dL (9-20); Calcium 9.5 mg/dL (8.4-10.2); Carbon Dioxide 21 mmol/L (22-32); Chloride 107 mmol/L (98-107); Creatine Kinase 85 U/L (55-170); Estimated Glomerular Filt Rate 39 mL/min (>60); Globulin 2.5 g/dL (1.7-4.1); Glucose 182 mg/dL (70-99); HEMOLYSIS 22 (0-50); Lipase 207 U/L (23-300); Magnesium 1.2 mg/dL (1.6-2.3); Potassium 3.7 mmol/L (3.4-5.1); Sodium 140 mmol/L (137-145); Total Protein 7.1 g/dL (6.3-8.2)
[2024-09-04 17:29] LABS: NT-proBNP (BNP-Adult 18+) 48 pg/mL (<450); Troponin I < 0.012 ng/mL (0.01-0.034)
--- NOTE | 2024-09-04 17:48 | PC.NURSE ---
Pt arrived to dept with because he has been having seizure like episodes preceded by syncope. Pt had episode at home and and called EMS. EMS recommended pt be transported to ED, but pt declined. Pt a&Ox4 at this time and able to stand for transfer from wheelchair to bed. 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
--- NOTE | 2024-09-04 18:08 | ED.SEIZURE ---
HPI - Seizure General Chief Complaint: Seizure Stated Complaint: vomiting, eyes rolling in back of head, seizures? Time Seen by Provider: 09/04/24 17:58 History of Present Illness HPI Narrative: 79-year-old male has no reported history of known seizures, no known cardiac dysrhythmias, 2 weeks ago had eye-rolling episode and collapse and refused EMS transport for evaluation, he had another episode of eye rolling earlier today and also refused EMS but did not collapse, had eye clinic appointment and while in the bathroom there had another episode of transient weakness sensation generalized that was unwitnessed and apparently not known to eye clinic staff, at home patient had another episode witnessed by , with eye rolling, no shaking, no incontinence, no collapse, brief and resolved without specific treatment. He would not recall any sensation of palpitations or chest pain or shortness of breath. No diaphoresis. That was at rest and not with any particular activities. Quick resolution of symptoms. Feels well now. also reports that she was on recent vacation ocean cruise with family members who had nausea vomiting diarrhea and suspected norovirus, on return 2 days ago patient had nausea vomiting, when outpatient seemed to have nausea and vomiting, nonbloody. Patient has had recent episodes of nausea and nonbloody emesis as well. Related Data Home Medications Medication Instructions Recorded Confirmed cholecalciferol (vitamin D3) 125 125 mcg PO DAILY 10/15/19 09/05/24 mcg (5,000 unit) capsule Adult Low Dose Aspirin 81 mg PO 3XW 09/05/24 09/05/24 hydrochlorothiazide 25 mg tablet 25 mg PO DAILY 09/05/24 09/05/24 Previous Rx's Medication Instructions Recorded Pen needles #100 ea 06/28/22 epinephrine 0.3 mg/0.3 mL 0.3 mg (0.3 mL) IM Q5-15M PRN 02/14/23 injection, auto-injector anaphylaxis #2 ea losartan 50 mg tablet 50 mg PO DAILY #90 tabs 03/02/24 atorvastatin 40 mg tablet 40 mg PO DAILY #90 tabs 04/16/24 metoprolol succinate 25 mg 25 mg PO BID #180 tabs 04/16/24 tablet,extended release 24 hr levothyroxine 75 mcg tablet 75 mcg PO DAILY #90 tabs 04/30/24 DISABLED PARKING PERMIT #1 ea 05/07/24 insulin glargine 100 unit/mL (3 40 unit (0.4 mL) SUBCUT QPM #15 mL 05/30/24 mL) subcutaneous pen pen needle, diabetic 32 gauge x #100 ea 08/08/24 (TRUEplus Pen Needle) Allergies Allergy/AdvReac Type Severity Reaction Status Date / Time codeine [CODEINE] Allergy Mild vertigo Verified 08/16/24 13:57 venom-honey bee Allergy Mild dizzy, Verified 08/16/24 13:57 [BEE VENOM (HONEY BEE)] world Eniram spinning Patient History Medical History (Updated 09/05/24 @ 09:32 by Billy Orona MD) Kidney stones Diabetes mellitus Hypertension Hyperlipidemia Chronic renal failure, stage 2 (mild) Surgical History (Updated 04/21/23 @ 10:20 by Billy Orona MD) History of inguinal hernia repair Status post appendectomy History of vasectomy History of splenectomy History of nephrectomy Family History Mother No problems noted. Social History marital status: household members: spouse Smoking Status: Never smoker alcohol intake: current substance use type: does not use Smoking Status: Never smoker Alcohol type: wine Exam Narrative Exam Narrative: GENERAL: Well-developed patient, in mild distress. HEAD: Atraumatic. Normocephalic. EYES: Pupils equal round and reactive. Extraocular motions intact. No scleral icterus. No injection or drainage. ENT: Nose without bleeding, purulent drainage. Throat without erythema, tonsillar hypertrophy or exudate. Airway patent. NECK: Trachea midline. Non tender CARDIOVASCULAR: Regular rate and rhythm without murmurs, gallops, or rubs. RESPIRATORY: Clear to auscultation. Breath sounds equal bilaterally. No wheezes, rales, or rhonchi. GASTROINTESTINAL: Abdomen soft, non-tender, nondistended. EXTREMITIES: No edema or joint tenderness. BACK: Nontender without deformity or crepitance. No flank tenderness. NEURO: AOx3. Cranial nerves normal as tested. Motor 5/5 bilateral upper extremity. Motor 5/5 bilateral lower extremity. Fmycyz-[id number] testing normal. Sensation intact to light touch face arms legs bilateral symmetrical. SKIN: No rash or erythema of visible areas Initial Vital Signs Initial Vital Signs: Vital Signs Blood Pressure 103/58 L 09/04/24 16:50 Course Orders Ordered: ED Orders 09/05/24 14:00 GI Panel (Film Array) Stat Acetaminophen (Acetaminophen 325 Mg Tablet) 650 mg PO Q6H PRN PRN Reason: Fever/Mild Pain (1-3) Last Admin: 09/05/24 03:28 Dose: 650 mg Documented By: ANNA Atorvastatin Calcium (Atorvastatin 20 Mg Tablet) 40 mg PO DAILY [facility] Last Admin: 09/05/24 08:31 Dose: 40 mg Documented By: DANNA Enoxaparin Sodium (Enoxaparin 40 Mg/0.4 Ml Syringe) 40 mg SUBCUT DAILY [facility] Last Admin: 09/05/24 08:33 Dose: 40 mg Documented By: DANNA Dextrose (D10w) 100 mls @ 999 mls/hr IV PRN PRN PRN Reason: Hypoglycemia Insulin Glargine (Insulin Glargine 100 Unit/Ml 3ml Pen) 40 unit SUBCUT QPM [facility] Insulin Human Lispro (Insulin Lispro 100 Unit/Ml 3ml Vial) 0 unit SUBCUT ACHS [facility]; Protocol Last Admin: 09/05/24 12:21 Dose: 1 unit Documented By: DANNA Co-signed By: CARLI Levetiracetam (Levetiracetam 250 Mg Tablet) 500 mg PO BID [facility] Last Admin: 09/05/24 08:33 Dose: 500 mg Documented By: DANNA Levothyroxine Sodium (Levothyroxine 75 Mcg Tablet) 75 mcg PO 0600 [facility] Last Admin: 09/05/24 06:27 Dose: 75 mcg Documented By: ANNA Losartan Potassium (Losartan 50 Mg Tablet) 50 mg PO DAILY [facility] Last Admin: 09/05/24 08:33 Dose: 50 mg Documented By: DANNA Metoprolol Succinate (Metoprolol Er 25 Mg Tablet) 25 mg PO BID [facility] Last Admin: 09/05/24 08:33 Dose: 25 mg Documented By: DANNA Naloxone HCl (Naloxone 0.4 Mg/Ml Vial) 0.2 mg IV Q2MIN PRN PRN Reason: Opiate Reversal Ondansetron HCl (Ondansetron 4 Mg Odt) 4 mg PO Q8HR PRN PRN Reason: Nausea And Vomiting Sodium Chloride (Sodium Chloride 0.9% Flush) 10 ml IV PRN PRN PRN Reason: Flush Sodium Chloride (Sodium Chloride 0.9% Flush) 10 ml IV BID [facility] Last Admin: 09/05/24 08:36 Dose: 10 ml Documented By: DANNA Vitamin D (Cholecalciferol (Vitamin D3) 5,000 Unit Tablet) 5,000 unit PO DAILY [facility] Last Admin: 09/05/24 08:31 Dose: 5,000 unit Documented By: DANNA Discontinued Medications Hydrochlorothiazide (Hydrochlorothiazide 25 Mg Tablet) 25 mg PO DAILY [facility] Last Admin: 09/05/24 08:33 Dose: 25 mg Documented By: DANNA Magnesium Sulfate (Magnesium Sulfate) 2 gm in 50 mls @ 150 mls/hr IV NOW ONE Stop: 09/04/24 18:31 Last Infusion: 09/04/24 19:43 Dose: Infused Documented By: BHUMI Co-signed By: HENNA Admin: 09/04/24 19:17 Dose: 150 mls/hr Documented By: BHUMI Co-signed By: NATTY Sodium Chloride (Normal Saline 0.9%) 1,000 mls @ 1,000 mls/hr IV BOLUS ONE Stop: 09/04/24 19:15 Last Infusion: 09/04/24 20:32 Dose: Infused Documented By: Admin: 09/04/24 19:16 Dose: 1,000 mls/hr Documented By: BHUMI Levetiracetam 1,000 mg/ Sodium (Chloride) 110 mls @ 440 mls/hr IV NOW ONE Stop: 09/04/24 21:53 Last Infusion: 09/04/24 22:59 Dose: Infused Documented By: Admin: 09/04/24 22:38 Dose: 440 mls/hr Documented By: BHUMI Ceftriaxone Sodium 2,000 mg/ (Sodium Chloride) 100 mls @ 200 mls/hr IV NOW ONE Stop: 09/04/24 23:13 Last Admin: 09/04/24 23:38 Dose: 200 mls/hr Documented By: GUME Insulin Human Lispro (Insulin Lispro 100 Unit/Ml 3ml Vial) 0 unit SUBCUT ACHS [facility]; Protocol Last Admin: 09/05/24 11:45 Dose: Not Given Documented By: Admin: 09/05/24 08:30 Dose: 2 unit Documented By: DANNA Co-signed By: CARLI Lorazepam (Lorazepam 2 Mg/Ml Inj) 1 mg IV NOW ONE Stop: 09/04/24 19:48 Last Admin: 09/04/24 20:04 Dose: 1 mg Documented By: HNG Vital Signs Vital signs: Vital Signs - 8 hr 09/04/24 16:50 09/04/24 16:51 09/04/24 16:51 Temperature Pulse Rate 87 Respiratory Rate 33 H Blood Pressure 103/58 L 161/75 H Pulse Oximetry 94 Oxygen Delivery Method Oxygen Flow Rate 09/04/24 16:53 09/04/24 17:00 09/04/24 17:00 Temperature 98.6 F Pulse Rate 90 92 H Respiratory Rate 18 36 H Blood Pressure 161/75 H 144/79 H Pulse Oximetry 91 91 Oxygen Delivery Method Room Air Oxygen Flow Rate 09/04/24 17:30 09/04/24 17:30 09/04/24 18:00 Temperature Pulse Rate 91 H 97 H Respiratory Rate 34 H 29 H Blood Pressure 127/76 Pulse Oximetry 91 93 Oxygen Delivery Method Oxygen Flow Rate 09/04/24 18:00 09/04/24 18:34 09/04/24 19:00 Temperature Pulse Rate 94 H 94 H Respiratory Rate Blood Pressure 133/72 Pulse Oximetry Oxygen Delivery Method Oxygen Flow Rate 09/04/24 19:00 09/04/24 19:30 09/04/24 19:33 Temperature Pulse Rate 92 H Respiratory Rate 24 Blood Pressure 142/78 H 184/83 H Pulse Oximetry Oxygen Delivery Method Oxygen Flow Rate 09/04/24 19:33 09/04/24 19:54 09/04/24 20:00 Temperature 98.9 F Pulse Rate 93 H 97 H Respiratory Rate 24 Blood Pressure Pulse Oximetry Oxygen Delivery Method Oxygen Flow Rate 09/04/24 20:01 09/04/24 20:01 09/04/24 20:30 Temperature Pulse Rate 96 H 101 H Respiratory Rate Blood Pressure 179/85 H Pulse Oximetry Oxygen Delivery Method Oxygen Flow Rate 09/04/24 20:31 09/04/24 20:31 09/04/24 21:00 Temperature Pulse Rate 101 H Respiratory Rate Blood Pressure 151/81 H 163/83 H Pulse Oximetry Oxygen Delivery Method Oxygen Flow Rate 09/04/24 21:00 09/04/24 21:30 09/04/24 21:30 Temperature Pulse Rate 104 H 103 H Respiratory Rate 22 Blood Pressure 166/92 H Pulse Oximetry 91 90 L Oxygen Delivery Method Room Air Oxygen Flow Rate 09/04/24 22:00 09/04/24 22:01 09/04/24 22:01 Temperature Pulse Rate 108 H 108 H Respiratory Rate Blood Pressure 160/76 H Pulse Oximetry 94 Oxygen Delivery Method Nasal Cannula Oxygen Flow Rate 2 09/04/24 22:30 09/04/24 22:31 09/04/24 22:31 Temperature Pulse Rate 109 H 109 H Respiratory Rate 19 Blood Pressure 138/59 L Pulse Oximetry 93 94 Oxygen Delivery Method Nasal Cannula Oxygen Flow Rate 2 09/04/24 23:00 Temperature 103 F H Pulse Rate Respiratory Rate Blood Pressure Pulse Oximetry Oxygen Delivery Method Oxygen Flow Rate MDM - Seizure Lab Data Attestation: I reviewed the patient's lab results. Lab results narrative: White blood cell count 67760, hemoglobin 15.7, platelets adequate. BUN 28 with creatinine 1.72 noted. Glucose 182. Electrolytes unremarkable. Serum CO2 21. Liver functions unremarkable, lipase normal. BNP 48. Troponin negative/unmeasurable. 09/05/24 05:57 09/05/24 05:57 Labs: Lab Results 09/04/24 09/04/24 09/04/24 Range/Units 16:55 18:20 19:13 WBC 13.5 H (4.5-11.0) X10^3/uL RBC 4.41 L (4.5-5.9) X10^6/uL Hgb 15.7 (13.5-17.5) g/dL Hct 44.7 (41-53) % MCV 101.4 H (80-100) fL MCH 35.5 H (26-34) PG MCHC 35.0 (30-36) % RDW 13.5 (11.6-14.8) % Plt Count 276 (150-400) X10^3/uL Neut % (Auto) 77.9 H (50-75) % Lymph % (Auto) 15.1 L (25-40) % [place] % (Auto) 5.9 (3-14) % Eos % (Auto) 0.2 L (2-4) % Baso % (Auto) 0.9 (0-2) % Neut # (Auto) 87078 H (4852-8105) /uL Lymph # (Auto) 2000 (1787-4270) /uL [place] # (Auto) 800 (0-900) /uL Eos # (Auto) 0 (0-450) /uL Baso # (Auto) 100 (0-100) /uL PT 10.9 (9.4-12.5) SECONDS INR 1.0 (0.9-1.3) APTT 25 L (25.1-36.5) SECONDS Sodium 140 (137-145) mmol/L Potassium 3.7 (3.4-5.1) mmol/L Chloride 107 (98-107) mmol/L Carbon Dioxide 21 L (22-32) mmol/L BUN 28 H (9-20) mg/dL Creatinine 1.72 H (0.66-1.25) mg/dL Estimated GFR 39 L (>60) mL/min BUN/Creatinine Ratio 16.3 (6-22) Glucose 182 H (70-99) mg/dL Calcium 9.5 (8.4-10.2) mg/dL Magnesium 1.2 L (1.6-2.3) mg/dL Total Bilirubin 1.4 H (0.2-1.3) mg/dL AST 38 (17-59) IU/L ALT 35 (<50) IU/L Alkaline Phosphatase 72 (38-126) U/L Total Creatine Kinase 85 (55-170) U/L Troponin I < 0.012 < 0.012 (0.01-0.034) ng/mL NT-Pro-B Natriuret Pep 48 (<450) pg/mL Total Protein 7.1 (6.3-8.2) g/dL Albumin 4.6 (3.5-5.0) g/dL Globulin 2.5 (1.7-4.1) g/dL Albumin/Globulin Ratio 1.8 (1.0-2.8) Lipase 207 (23-300) U/L Urine Color Urine Appearance Urine pH (4.5-8.0) Ur Specific [place] (1.000-1.035) Urine Protein (Negative) Urine Glucose (UA) (Negative) g/dL Urine Ketones (NEGATIVE) Urine Occult Blood (Negative) Urine Nitrate (Negative) Urine Bilirubin (NEGATIVE) Urine Urobilinogen (0.2) E.U./dL Ur Leukocyte Esterase (NEGATIVE) Urine RBC (0-5/HPF) Urine WBC (0-5/HPF) Ur Squamous Epith Cells (0-5/HPF) Urine Bacteria (None) Ur Culture Indicated? Vol Urine Centrifuged SARS-CoV-2 (PCR) Negative (Negative) Influenza A (RT-PCR) Flu a negative (NEGATIVE) Influenza B (RT-PCR) Flu b negative (NEGATIVE) RSV (PCR) Negative (Negative) 09/04/24 Range/Units 20:47 WBC (4.5-11.0) X10^3/uL RBC (4.5-5.9) X10^6/uL Hgb (13.5-17.5) g/dL Hct (41-53) % MCV (80-100) fL MCH (26-34) PG MCHC (30-36) % RDW (11.6-14.8) % Plt Count (150-400) X10^3/uL Neut % (Auto) (50-75) % Lymph % (Auto) (25-40) % [place] % (Auto) (3-14) % Eos % (Auto) (2-4) % Baso % (Auto) (0-2) % Neut # (Auto) (8033-7526) /uL Lymph # (Auto) (0089-5573) /uL [place] # (Auto) (0-900) /uL Eos # (Auto) (0-450) /uL Baso # (Auto) (0-100) /uL PT (9.4-12.5) SECONDS INR (0.9-1.3) APTT (25.1-36.5) SECONDS Sodium (137-145) mmol/L Potassium (3.4-5.1) mmol/L Chloride (98-107) mmol/L Carbon Dioxide (22-32) mmol/L BUN (9-20) mg/dL Creatinine (0.66-1.25) mg/dL Estimated GFR (>60) mL/min BUN/Creatinine Ratio (6-22) Glucose (70-99) mg/dL Calcium (8.4-10.2) mg/dL Magnesium (1.6-2.3) mg/dL Total Bilirubin (0.2-1.3) mg/dL AST (17-59) IU/L ALT (<50) IU/L Alkaline Phosphatase (38-126) U/L Total Creatine Kinase (55-170) U/L Troponin I (0.01-0.034) ng/mL NT-Pro-B Natriuret Pep (<450) pg/mL Total Protein (6.3-8.2) g/dL Albumin (3.5-5.0) g/dL Globulin (1.7-4.1) g/dL Albumin/Globulin Ratio (1.0-2.8) Lipase (23-300) U/L Urine Color Yellow Urine Appearance Clear Urine pH 5.5 (4.5-8.0) Ur Specific [place] 1.015 (1.000-1.035) Urine Protein Negative (Negative) Urine Glucose (UA) Negative (Negative) g/dL Urine Ketones Negative (NEGATIVE) Urine Occult Blood Negative (Negative) Urine Nitrate Negative (Negative) Urine Bilirubin Negative (NEGATIVE) Urine Urobilinogen 0.2 (0.2) E.U./dL Ur Leukocyte Esterase Negative (NEGATIVE) Urine RBC None seen (0-5/HPF) Urine WBC None seen (0-5/HPF) Ur Squamous Epith Cells None seen (0-5/HPF) Urine Bacteria None seen (None) Ur Culture Indicated? Cult not indicated Vol Urine Centrifuged 10ml (spun) SARS-CoV-2 (PCR) (Negative) Influenza A (RT-PCR) (NEGATIVE) Influenza B (RT-PCR) (NEGATIVE) RSV (PCR) (Negative) Point of Care Testing Glucose POC 175 ECG Data Attestation: I personally reviewed and interpreted this ECG as follows: Interpretation: Normal sinus rhythm with PAC. Heart rate 90. No obvious ST segment elevation changes. W[place] 178, QRS 94, QTC 442. [facility] Narrative Medical decision making narrative: 79-year-old male with eye rolling like episode 2 weeks ago, returned from recent cruise who has had nausea vomiting diarrhea, patient also has had some nausea vomiting and diarrhea. Today he has had 3 episodes of eye rolling, generalized weakness, nonfocal, no shaking episodes, no incontinence. No known seizure disorder. CT head ordered, CT angiogram head and neck vessels. EKG labs pending. Magnesium 1.2 low noted, IV magnesium repletion. IV fluid bolus. CT head and CT angiogram studies pending. EKG shows normal sinus rhythm, troponin negative/unmeasurable. 1945, patient was shaking tremulousness rigors like, looking around alert, IV Ativan [address] head noncontrast. Impressions: ?No acute intracranial pathology. [id number] chronic microvascular ischemic changes in generalized parenchymal volume loss. Left frontal convexity extra-axial mass, nonspecific but most likely a meningioma. No mass effect or adjacent edema. Contrasted enhanced MRI could be performed for further evaluation if indicated clinically. See radiology report. CT angiogram head and neck vessels. Impressions: ?No significant intracranial arterial abnormality seen. No significant abnormality seen with the arteries in the neck. Enhancing left frontal convexity dural-based mass is most likely a meningioma. MRI of the brain with and without contrast copy done for further evaluation. ? See radiology report. CT suspicious for brain mass possible meningioma. Recurrent shaking episodes. Possibly could be having focal irritation related seizures. IV Keppra load. We will consult Neurosurgery for follow up plan. callback from [facility] Dr Loja reviewed case, feels the lesion is quite small, can treated with Keppra for possible seizures. Can further imaged with MRI and further consult with them. Patient now having fever 103, blood cultures requested. IV ceftriaxone empiric. Unclear course theough he/ has had recent gastroenteritis smptoms, just returned from ocean cruise with aue GI symptoms. Patient did not have headache or meningismus. Abdomen benign. Urinalysis was negative. Consider admission. We will contact hospitalist PCP Adwoa, we will contact cross cover Dr. Rashid. [id number], case discussed with cross cover physician Dr. Drake who accepts patient for admission Critical Care Time Critical Care Time Critical Care Time: Yes Total Critical Care Time: 35 Attestation: The high probability of a clinically significant, sudden or life threatening deterioration of the [cerebrovascular, cardiopulmonary,] system(s) required my full and direct attention, intervention and personal management. The aggregate critical care time was [35] minutes. This time is in addition to time spent performing reported procedures but includes the following: [x] Data Review and interpretation [x] Patient assessment and monitoring of vital signs [x] Documentation [x] Medication orders and management Discharge Plan Departure Patient Disposition: Home Clinical Impression: Episode of shaking, Brain mass, Gastroenteritis Fever Qualifiers: Fever type: unspecified Qualified Code(s): R50.9 - Fever, unspecified
--- NOTE | 2024-09-04 18:11 | DI.CT.S_ITS ---
PROCEDURE: CT HEAD/BRAIN WO CON INDICATIONS: eye rolling episodes/seizures TECHNIQUE: Noncontrast 4.5 mm thick angled axial sections acquired from the foramen magnum to the vertex, with coronal and sagittal reformats. For radiation dose reduction, the following was used: automated exposure control, adjustment of mA and/or kV according to patient size. COMPARISON: None. FINDINGS: Image quality: Diagnostic. CSF spaces: Basal cisterns are patent. No extra-axial fluid collections. The ventricles are symmetric in size and shape. Left frontal convexity dural based mass is seen measuring approximately the 1.3 x 0.6 by 1.1 cm. Brain: No acute intracranial hemorrhage or mass effect. There is cerebral volume loss, with resultant ventricular and sulcal prominence. There are periventricular and deep white matter chronic small vessel ischemic changes. There is intracranial internal carotid artery atherosclerosis. Skull and face: Calvarium and visualized facial bones appear intact, without suspicious lesions. Sinuses: Mild mucosal thickening in the left maxillary sinus. Visualized sinuses and mastoids are otherwise clear. IMPRESSION: 1. No acute intracranial pathology. 2. Sdlo-gh-cbxmsfyj chronic microvascular ischemic changes and generalized parenchymal volume loss. 3. Left frontal convexity extra-axial mass, nonspecific but most likely a meningioma. No mass effect or adjacent edema. Contrast enhanced MRI could be performed for further evaluation if indicated clinically. Approved by: Wilver Hinds M.D. on 09/04/2024 at 18:46
--- NOTE | 2024-09-04 18:11 | DI.CT.S_ITS ---
PROCEDURE: CT ANGIO HEAD AND NECK INDICATIONS: recurrent near syncope episodes TECHNIQUE: After the administration of intravenous contrast, 1 mm thick sections acquired from the aortic arch through the [place]. 3-dimensional sybptta-fayfwtloy-ufwvkhkmud (MIP) and/or volume rendering reformats were acquired of the central intracranial vasculature and neck separately. For radiation dose reduction, the following was used: automated exposure control, adjustment of mA and/or kV according to patient size. COMPARISON: [facility], CT, CT HEAD/BRAIN WO CON, 09/04/2024, 18:27. FINDINGS: Image quality: Diagnostic. BRAIN: Please see the separately dictated report from the noncontrast CT of the head performed at the same time. Left frontal convexity dural based mass demonstrates homogeneous postcontrast enhancement. HEAD CT ANGIOGRAPHY: Anterior circulation: Intracranial internal carotid arteries demonstrate atherosclerotic calcifications without hemodynamically significant stenosis.. The flow within the paired anterior cerebral arteries is normal and symmetric. The flow within the middle cerebral arteries is normal and symmetric. The anterior communicating artery is seen. No aneurysms are seen. Posterior circulation: Visualized portions of the vertebral arteries demonstrate mild atherosclerotic calcifications without hemodynamically significant stenosis, and join to form a normal appearing basilar artery. Flow within the posterior cerebral arteries is normal and symmetric. No aneurysms are seen. NECK CT ANGIOGRAPHY: Carotid system: Left common carotid artery arises from the brachiocephalic trunk, a normal anatomic variant. The origins of the common carotid arteries appear patent. The common carotid arteries demonstrate normal caliber and courses. The bifurcation regions demonstrate atherosclerotic calcifications without hemodynamically significant stenosis. The internal carotid arteries demonstrate normal calibers and courses. Posterior circulation: The origins of the vertebral arteries both appear widely patent. The more superior extracranial portions of both vertebral arteries also demonstrate normal courses and calibers. They join to form a normal appearing basilar artery. Soft tissues: Visualized neck soft tissues demonstrate no suspicious abnormalities. Surgical clips are seen in the right neck. Mild mucosal thickening in the maxillary sinuses. Bones: No suspicious bony lesions. Visualized cervical spine appears normally aligned. IMPRESSION: No significant intracranial arterial abnormality is seen. No significant abnormality is seen within the arteries of the neck. Enhancing left frontal convexity dural based mass is most likely a meningioma. MRI of the brain with without contrast could be for further evaluation. Any quantitative measurements of stenosis were performed using NASCET criteria. Approved by: Wilver Hinds M.D. on 09/04/2024 at 18:58
[2024-09-04 19:15] LABS: Influenza A - CEPHEID Flu A NEGATIVE (NEGATIVE); Influenza B - CEPHEID Flu B NEGATIVE (NEGATIVE); Respiratory Syncytial Virus Negative (Negative)
[2024-09-04] MEDS: SODIUM CHLORIDE 0.9% 1,000 ML 1000 ML IV (19:16)
[2024-09-04] MEDS: MAGNESIUM SULFATE 2 GM/50 ML PIGGYBACK IV (19:17)
[2024-09-04 19:18] LABS: COVID-19 CEPHEID 4-PLEX PCR Negative (Negative)
[2024-09-04 19:43] LABS: Troponin I < 0.012 ng/mL (0.01-0.034)
[2024-09-04] MEDS: LORazepam 2 MG/ML INJ 1 MG IV (20:04)
[2024-09-04 20:55] LABS: Appearance Urine UA CLEAR; Bilirubin Urine UA NEGATIVE (NEGATIVE); Color Urine UA YELLOW; Glucose Urine UA NEGATIVE (Negative); Ketones Urine UA NEGATIVE (NEGATIVE); Leukocyte Esterase Urine UA NEGATIVE (NEGATIVE); Nitrite Urine UA NEGATIVE (Negative); Occult Blood Urine UA NEGATIVE (Negative); Protein Urine UA NEGATIVE (Negative); Specific Gravity Urine UA 1.015 (1.000-1.035); Urobilinogen Urine UA 0.2 E.U./dL (0.2); pH Urine UA 5.5 (4.5-8.0)
[2024-09-04 21:01] LABS: Bacteria Urine None Seen; Culture Indicated Urine Cult Not Indicated; RBC Urine None Seen (0-5/HPF); Squamous Epithelial Cell Urine None Seen (0-5/HPF); Urine Volume 10mL (spun); WBC Urine None Seen (0-5/HPF)
[2024-09-04] MEDS: levETIRAcetam 1,000 MG in SODIUM CHLORIDE 0.9% 100 ML 440 MG IV (22:38)
[2024-09-04] MEDS: cefTRIAXone 2,000 MG in SODIUM CHLORIDE 0.9% 100 ML 200 MG IV (23:38)
[2024-09-05] VITALS (13 sets, daily range): BP systolic 90–134; BP diastolic 58–82; PULSE 62–104; RESP 16–24; TEMP 36.2–38.4; O2SAT 94–98; BMI 29.5
--- NOTE | 2024-09-05 00:04 | PC.NURSE ---
Temperature check on patient shows oral temp of 103, Dr harkins aware, blood cultures and rochephin ordered see MAR. Blood cultures sent before starting antibiotics. At this time temp is down 100.3 oral
--- NOTE | 2024-09-05 00:10 | DI.MRI.S_ITS ---
PROCEDURE: MR HEAD/BRAIN WO/W CON INDICATIONS: brain lesion TECHNIQUE: Noncontrast axial T1 spin echo, axial T2 fast spin echo, sagittal and axial FLAIR, coronal T2 fast spin echo, axial gradient echo, axial diffusion and ADC through the brain. After the administration of contrast, axial and coronal and sagittal T1 spin echo with fat saturation through the brain. COMPARISON: [facility], CT, CT ANGIO HEAD AND NECK, 09/04/2024, 18:27. [facility], CT, CT HEAD/BRAIN WO CON, 09/04/2024, 18:27. FINDINGS: Image quality: Excellent. CSF spaces: Basal cisterns are patent. No extra-axial fluid collections. Ventricles are normal in size and shape. Brain: There is again seen an extra-axial mass along the anterior superior aspect of the left frontal lobe. This demonstrates a broad attachment to the dura, with a dural tail. This lesion demonstrates moderate enhancement, and measures 2 x 0.9 cm in greatest axial dimension, with a craniocaudal extent of 0.8 cm. No significant abnormality of the underlying frontal lobe itself can be seen. No midline shift. No intracranial bleeds. There is cerebral volume loss for age. There is periventricular white matter chronic small vessel ischemic change. The brainstem appears normal. Diffusion-weighted images demonstrate no acute infarct. No chronic ischemic insults. Normal intravascular flow voids are present. Skull and face: Calvarial marrow is normal in signal. Orbits appear normal. Note is made of bilateral lens replacements. Sinuses: Sinuses and mastoids appear clear. IMPRESSION: 2 cm presumed meningioma seen adjacent to the superior aspect of the left frontal lobe. No additional intracranial masses or abnormal enhancement can be seen. No findings of acute or subacute infarction can be seen. Dictated by: Yuri Carlos M.D. on 09/05/2024 at 14:29 Approved by: Yuri Carlos M.D. on 09/05/2024 at 14:31
--- NOTE | 2024-09-05 02:13 | PC.NURSE ---
0000 Patient admitted to room 211, accompanied by his Cathi, no seizures activity. Denies any pain, nausea, oriented to his room. Seizures precautions implemented; rails padded & suction in placed. Will continue plan of care & monitor.
[2024-09-05] MEDS: ACETAMINOPHEN 325 MG TABLET 650 MG PO (03:28)
[2024-09-05] MEDS: LEVOTHYROXINE 75 MCG TABLET PO (06:27)
[2024-09-05 06:38] LABS: Alanine Aminotransferase 28 IU/L (<50); Albumin 3.8 g/dL (3.5-5.0); Albumin Globulin Ratio 1.7 (1.0-2.8); Alkaline Phosphatase 54 U/L (38-126); Aspartate Aminotransferase 40 IU/L (17-59); BUN Creatinine Ratio 15.8 (6-22); Blood Urea Nitrogen 28 mg/dL (9-20); Calcium 8.6 mg/dL (8.4-10.2); Carbon Dioxide 21 mmol/L (22-32); Chloride 106 mmol/L (98-107); Estimated Glomerular Filt Rate 38 mL/min (>60); Globulin 2.2 g/dL (1.7-4.1); Glucose 144 mg/dL (70-99); HEMOLYSIS < 15 (0-50); Hematocrit 39.8 % (41-53); Hemoglobin 14.1 g/dL (13.5-17.5); Mean Corpuscular HGB Conc 35.4 % (30-36); Mean Corpuscular Hemoglobin 35.4 PG (26-34); Platelet Count 216 X10^3/uL (150-400); Potassium 3.7 mmol/L (3.4-5.1); Red Blood Cell Count 3.98 X10^6/uL (4.5-5.9); Red Cell Distribution Width 13.4 % (11.6-14.8); Sodium 137 mmol/L (137-145); White Blood Cell Count 13.8 X10^3/uL (4.5-11.0)
[2024-09-05 06:40] LABS: Add Manual Diff / Slide Review YES
[2024-09-05 07:21] LABS: Anisocytosis 1+; Neutrophils Absolute Manual 12282 /uL (3000-5900); Total Cells Counted 100
[2024-09-05 07:22] LABS: Burr Cells 1+
--- NOTE | 2024-09-05 07:56 | P.HP_ITS ---
History of Present Illness History of Present Illness Date Patient Seen: 09/05/24 Time Patient Seen: 09:23 Chief complaint: vomiting, eyes rolling in back of head, seizures? Narrative: 79-year-old male with a past medical history insulin-dependent diabetes chronic kidney disease hypothyroidism hypertension hyperlipidemia presents to the emergency department with episodes of eyes rolling back in his head nausea and tremors. Patient presented to the emergency department by his . History is as follows. Patient is good historian his helps provide the history as well 2 weeks ago his got back from a cruise. Patient had an episode at home while she was gone with her son. The son states he was sitting in the chair his eyes rolled up in the back of his head his face went kind of blank he had quivering inch tremors a little bit of his face. This lasted for about 30 seconds his son was worried enough that he laid him on the ground and called 911. Patient was evaluated at that time his blood pressure and vitals were good. Had no blood sugar problems. Patient was feeling fine and did not want to be re-evaluated there was no loss of consciousness during this episode. The patient then had a similar episode 1 week later. And then a similar episode on Tuesday. They were concerned enough at this point to come in. Each episode described was for 30-60 seconds. His eyes began to roll up in his head he had some facial blank Jin quivering some nausea. Patient did not lose bladder or bowel incontinence did not have loss of consciousness. Patient's vital signs were stable during this episode no chest pain during this episode patient is aware of these happening. His on the cruise that she went on sounds like got gastroenteritis. Came home with that. Over the last 24-48 hours patient has been having episodes of what he describes as nausea of vomiting and explosive diarrhea. He had an event similar to this in the bathroom in the emergency department. In the emergency department laboratory testing was done advanced imaging was done. In the emergency department patient has stable vital signs but ultimately had a fever of 103. He had had an episode of eye twitching eyes rolling back up in his had facial muscle changes and was given Ativan and loaded with Keppra. His blood work shows mild elevation of white blood cell count chest x-ray shows no infection urine culture and urinalysis shows no infection stool culture is pending. Patient did not have a procalcitonin blood cultures are pending. Patient also has stool cultures are pending. Patient had a CT head and CT angiogram of neck. Patient had a meningioma that was found on his CT scan. Patient had a consultation with the neuro team. Who recommended admission seizure prophylaxis and advanced imaging. During the hospital stay last night patient states he is doing well know what he describes his seizure activity. His vital signs have been stable from blood pressure and pulse standpoint but he has had a low-grade temp of a 100? 1-103. He has had no further episodes of diarrhea he has a little bit tachycardic. He is oxygenating well on 2 L. during the emergency department he was given Ativan Keppra magnesium and IV fluids. [facility] Medical History (Updated 09/05/24 @ 09:32 by Billy Orona MD) Kidney stones Diabetes mellitus Hypertension Hyperlipidemia Chronic renal failure, stage 2 (mild) Surgical History (Updated 04/21/23 @ 10:20 by Billy Orona MD) History of inguinal hernia repair Status post appendectomy History of vasectomy History of splenectomy History of nephrectomy Family History Mother No problems noted. Social History marital status: household members: spouse Smoking Status: Never smoker alcohol intake: current substance use type: does not use Meds Home Medications and Allergies Home Medications Medication Instructions Recorded Confirmed Type cholecalciferol (vitamin D3) 125 125 mcg PO DAILY 10/15/19 09/05/24 History mcg (5,000 unit) capsule Pen needles #100 ea 06/28/22 09/05/24 Rx epinephrine 0.3 mg/0.3 mL 0.3 mg (0.3 mL) IM Q5-15M PRN 02/14/23 09/05/24 Rx injection, auto-injector anaphylaxis #2 ea losartan 50 mg tablet 50 mg PO DAILY #90 tabs 03/02/24 09/05/24 Rx atorvastatin 40 mg tablet 40 mg PO DAILY #90 tabs 04/16/24 09/05/24 Rx metoprolol succinate 25 mg 25 mg PO BID #180 tabs 04/16/24 09/05/24 Rx tablet,extended release 24 hr levothyroxine 75 mcg tablet 75 mcg PO DAILY #90 tabs 04/30/24 09/05/24 Rx DISABLED PARKING PERMIT #1 ea 05/07/24 09/05/24 Rx insulin glargine 100 unit/mL (3 40 unit (0.4 mL) SUBCUT QPM #15 mL 05/30/24 09/05/24 Rx mL) subcutaneous pen pen needle, diabetic 32 gauge x #100 ea 08/08/24 09/05/24 Rx 5/32 (TRUEplus Pen Needle) Adult Low Dose Aspirin 81 mg PO 3XW 09/05/24 09/05/24 History hydrochlorothiazide 25 mg tablet 25 mg PO DAILY 09/05/24 09/05/24 History Allergies Allergy/AdvReac Type Severity Reaction Status Date / Time codeine [CODEINE] Allergy Mild vertigo Verified 08/16/24 13:57 venom-honey bee Allergy Mild dizzy, Verified 08/16/24 13:57 [BEE VENOM (HONEY BEE)] world starts spinning Exam Vital Signs (past 8 hours): - 09/05/24 00:32 09/05/24 03:28 09/05/24 03:50 Temperature 99.5 F 101.1 F H 99.6 F Pulse Rate 104 H 99 H Respiratory Rate 24 22 Blood Pressure 134/82 124/75 Pulse Oximetry 95 96 Oxygen Flow Rate 2 2 09/05/24 04:04 09/05/24 06:30 Temperature 99.6 F 98.4 F Pulse Rate Respiratory Rate Blood Pressure Pulse Oximetry Oxygen Flow Rate Oxygen Delivery Method Nasal Cannula Oxygen Flow Rate 2 Narrative Exam Narrative: Gen.: Alert good historian somewhat weak and disheveled HEENT: Pupils equal round and reactive or mucosa is moist neck is supple Cardio: S1-S2 systolic murmur present Respiratory: Normal respiratory effort no wheezes or crackles Abdomen: Abdomen is soft obese midline surgical scar no tenderness Extremities: Patient has warm dry perfused exam raise with full range of motion no acute focal neurological deficits some generalized weakness Neurologic: Grossly intact. Objective Labs 09/05/24 05:57 09/05/24 05:57 Labs: Laboratory Results - last 24 hr 09/04/24 09/04/24 09/04/24 16:55 18:20 19:13 WBC 13.5 H RBC 4.41 L Hgb 15.7 Hct 44.7 MCV 101.4 H MCH 35.5 H MCHC 35.0 RDW 13.5 Plt Count 276 Neut % (Auto) 77.9 H Lymph % (Auto) 15.1 L [place] % (Auto) 5.9 Eos % (Auto) 0.2 L Baso % (Auto) 0.9 Neut # (Auto) 23910 H Lymph # (Auto) 2000 [place] # (Auto) 800 Eos # (Auto) 0 Baso # (Auto) 100 Total Counted Seg Neutrophils % Band Neutrophils % Lymphocytes % (Manual) Monocytes % (Manual) Neutrophils # (Manual) RBC Morphology Anisocytosis Gage Cells PT 10.9 INR 1.0 APTT 25 L Sodium 140 Potassium 3.7 Chloride 107 Carbon Dioxide 21 L BUN 28 H Creatinine 1.72 H Estimated GFR 39 L BUN/Creatinine Ratio 16.3 Glucose 182 H Calcium 9.5 Magnesium 1.2 L Total Bilirubin 1.4 H AST 38 ALT 35 Alkaline Phosphatase 72 Total Creatine Kinase 85 Troponin I < 0.012 < 0.012 NT-Pro-B Natriuret Pep 48 Total Protein 7.1 Albumin 4.6 Globulin 2.5 Albumin/Globulin Ratio 1.8 Lipase 207 Urine Color Urine Appearance Urine pH Ur Specific [place] Urine Protein Urine Glucose (UA) Urine Ketones Urine Occult Blood Urine Nitrate Urine Bilirubin Urine Urobilinogen Ur Leukocyte Esterase Urine RBC Urine WBC Ur Squamous Epith Cells Urine Bacteria Ur Culture Indicated? Vol Urine Centrifuged SARS-CoV-2 (PCR) Negative Influenza A (RT-PCR) Flu a negative Influenza B (RT-PCR) Flu b negative RSV (PCR) Negative 09/04/24 09/05/24 20:47 05:57 WBC 13.8 H RBC 3.98 L Hgb 14.1 Hct 39.8 L MCV 100.0 MCH 35.4 H MCHC 35.4 RDW 13.4 Plt Count 216 Neut % (Auto) Not Reportable Lymph % (Auto) Not Reportable [place] % (Auto) Not Reportable Eos % (Auto) Not Reportable Baso % (Auto) Not Reportable Neut # (Auto) Lymph # (Auto) Not Reportable [place] # (Auto) Not Reportable Eos # (Auto) Baso # (Auto) Not Reportable Total Counted 100 Seg Neutrophils % 81.0 H Band Neutrophils % 8.0 H Lymphocytes % (Manual) 6.0 L Monocytes % (Manual) 5.0 Neutrophils # (Manual) 42982 H RBC Morphology Not Reportable Anisocytosis 1+ H [place] Cells 1+ H PT INR APTT Sodium 137 Potassium 3.7 Chloride 106 Carbon Dioxide 21 L BUN 28 H Creatinine 1.77 H Estimated GFR 38 L BUN/Creatinine Ratio 15.8 Glucose 144 H Calcium 8.6 Magnesium Total Bilirubin 1.0 AST 40 ALT 28 Alkaline Phosphatase 54 Total Creatine Kinase Troponin I NT-Pro-B Natriuret Pep Total Protein 6.0 L Albumin 3.8 Globulin 2.2 Albumin/Globulin Ratio 1.7 Lipase Urine Color Yellow Urine Appearance Clear Urine pH 5.5 Ur Specific [place] 1.015 Urine Protein Negative Urine Glucose (UA) Negative Urine Ketones Negative Urine Occult Blood Negative Urine Nitrate Negative Urine Bilirubin Negative Urine Urobilinogen 0.2 Ur Leukocyte Esterase Negative Urine RBC None seen Urine WBC None seen Ur Squamous Epith Cells None seen Urine Bacteria None seen Ur Culture Indicated? Cult not indicated Vol Urine Centrifuged 10ml (spun) SARS-CoV-2 (PCR) Influenza A (RT-PCR) Influenza B (RT-PCR) RSV (PCR) Assessment & Plan Assessment and plan (1) Brain mass: Status: Acute (2) Episode of shaking: Status: Acute (3) Gastroenteritis: Status: Acute (4) Fever: Qualifiers: Fever type: unspecified Qualified Code(s): R50.9 - Fever, unspecified Status: Acute Plan Left frontal meningioma patient has a newly diagnosed meningioma 1.5 x 1 cm in diameter. MRI today for further delineation. Neurosurgical consultation done in the emergency room did not recommend acute neurological intervention as far as surgery goes. We will follow up with his MRI and make further decisions based on this. Possible seizure. Patient with seizure-like activity 3 episodes over the last 2 weeks 1 potentially in the emergency department. Patient was loaded with Keppra a 1000 mg in the emergency department. I will continue with Keppra 500 mg twice a day until there is further delineation of seizure disorder and if it is related to the meningioma or not. Ultimately patient will need EEG which we do not have access here to in the hospital. We will place him on seizure precautions. Continue with low-dose Keppra. And monitor seizure-like activity. Fever patient with fever and gastrointestinal symptoms with recent exposure to gastroenteritis from his . Patient had an episode of explosive diarrhea and nausea yesterday still nauseated today although had a little bit of breakfast has not had any further bowel movements. Other sources of fever are negative at this point including chest x-ray and urinalysis. White blood cell count is elevated. Blood cultures will be done stool cultures will be done. He was given a course of antibiotics in the emergency department I am holding off on further antibiotics at this point is I am not sure what I am treating and will follow further testing to delineate what next steps are. Hypomagnesemia. Most likely due to dehydration and gastroenteritis received magnesium replacement. Will continue to check magnesium level and electrolytes. Replace as needed. Insulin dependent diabetes. Patient with insulin-dependent diabetes he is on Lantus insulin and insulin sliding scale. Will provide diabetic diet. Blood sugar checks per protocol insulin cover with the sliding scale as needed to keep blood sugars under control. Patient is on insulin because of his chronic kidney disease. CKD stage IIIB. Monitor electrolytes kidney function. Currently stable. Avoid nephrotoxic drugs. Hypertension. Patient's blood pressure medication will be restarted his blood pressure was elevated in the emergency department it is now lower after [facility] of blood pressure management Hyperlipidemia. Patient will be continued on his statin medication. DVT prophylaxis with Lovenox Code full code Hospitalization disposition and plan MRI today continue with Keppra for seizure prevention. Stool cot cultures blood cultures for further delineation of fever and infection risk. Anticipate hospitalization for greater than 2 midnights Time-Based Coding :: [TOTAL MINUTES] spent with patient and on the chart (including review of chart, obtaining history, exam, reviewing outside data, placing orders, documenting exam and treatment plan, and counseling patient) on [DATE]. 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
[2024-09-05] MEDS: INSULIN LISPRO 100 UNIT/ML 3ML VIAL SUBCUT ×3 (08:30→17:12)
[2024-09-05] MEDS: CHOLECALCIFEROL (VITAMIN D3) 5,000 UNIT TABLET 5000 UNIT PO (08:31)
[2024-09-05] MEDS: ATORVASTATIN 20 MG TABLET 40 MG PO (08:31)
[2024-09-05] MEDS: levETIRAcetam 250 MG TABLET 500 MG PO ×2 (08:33→21:27)
[2024-09-05] MEDS: METOPROLOL ER 25 MG TABLET PO ×2 (08:33→21:27)
[2024-09-05] MEDS: hydroCHLOROthiazide 25 MG TABLET PO (08:33)
[2024-09-05] MEDS: ENOXAPARIN 40 MG/0.4 ML SYRINGE SUBCUT (08:33)
[2024-09-05] MEDS: LOSARTAN 50 MG TABLET PO (08:33)
[2024-09-05] MEDS: SODIUM CHLORIDE 0.9% FLUSH 10 ML IV ×2 (08:36→21:27)
[2024-09-05 10:31] LABS: Hemoglobin A1C% w Est Avg Glu 6.1 % (4.0-6.0)
--- NOTE | 2024-09-05 11:05 | PT.IIE ---
Current Diagnoses Other specified disorders of brain (09/04/24) Noninfective gastroenteritis and colitis, unspecified (09/04/24) Tremor, unspecified (09/04/24) Fever, unspecified (09/04/24) Surgical History (Last Reviewed 05/22/18 @ 09:26 by Tita Benton LPN) History of inguinal hernia repair History of nephrectomy History of splenectomy History of vasectomy Status post appendectomy Medical History (Last Updated 10/22/22 @ 11:53 by Billy Orona MD) Chronic renal failure, stage 2 (mild) Diabetes mellitus Hyperlipidemia Hypertension Kidney stones Physical Therapy Inpatient Evaluation/Re-Eval M1 PT/OT-IP Prior Functional Status Start: 09/05/24 12:10 Freq: NEEDED Status: Active Protocol: Document 09/05/24 11:05 AB (Rec: 09/05/24 12:31 AB [id number]) Medical Review Prior Functional Status Medical History Reviewed Yes Communication able to make needs known Mobility and Gait pt was independent with all mobilities and ambulation without AD Social History Household Members spouse Living Arrangements House Number of Floors (Floors) One Floor Number of Stairs To Enter/Railing? 1 step to enter Home Environment Standard Height Toilet,Ramp Home Equipment Shower Seat without Backrest, Hand Held Shower,Grab Bars Near Toilet,Grab Bars In Shower M2 PT-IP Current Condition Start: 09/05/24 12:10 Freq: NEEDED Status: Active Protocol: Document 09/05/24 11:05 AB (Rec: 09/05/24 12:31 AB [id number]) Physical Therapy Current Condition Current Condition Evaluation Date 09/05/24 Treatment Diagnosis seizure; difficulty in walking Onset Date 09/04/24 M3 PT-IP Subjective Start: 09/05/24 12:10 Freq: NEEDED Status: Active Protocol: Document 09/05/24 11:05 AB (Rec: 09/05/24 12:31 AB [id number]) Subjective Physical Therapy Visit Type Type Initial Evaluation Visit Start Time 11:05 Visit Stop Time 11:45 Number of [employer] Visits 0 Physical Therapy Visit Comments Patient Comments agreeable to do PT Therapy Pain Assessment Pain Present Pain Present Denied Pain M4 PT-IP Mobility and Gait Start: 09/05/24 12:10 Freq: NEEDED Status: Active Protocol: Document 09/05/24 11:05 AB (Rec: 09/05/24 12:31 AB [id number]) PT-Bed Mobility Assessment Supine to Sit Supine to Sit Standby Assistance Sit to Supine Sit to Supine Standby Assistance PT-Transfer Assessment Sit to and From Stand Sit to and from Stand Contact Guard Assistance,1 Person Assistance,Use of Upper Extremities Equipment Transfer Assistive Device None,Gait Belt,Front Wheeled Walker Orthotic/Prosthetic Devices or Brace: No Transfers Transfer Destination Chair Transfer Technique ambulated Transfer Ability Level of Assist Contact Guard Assistance, Minimal Assistance,1 Person Assistance,Use of Upper Extremities Comments Mobility Comments pt in bed and agreeable to do PT. obtained PLOF and home set up. BP in supine: 100/56. O2 sat with O2 on 96% MO 66. O2 on RA 95-96%. pt completed supine to sit SBA. able to sit on EOb SBA. no c/o dizziness. BP checked: 97/58 . Rechecked: 80/54. changed BP cuff and checked again: 92/ 64. sit to stand from EOB CGA and ambulated to the chair without AD min A. presents with unsteady antalgic gait. no c/o dizziness. pt sat on the chair. BP checked: 88/58. nurse in room and is aware of BP. Assessed ambulation using FWW and pt completed CGA using FWW ~ 20 ft. pt sat back on the chair. BP rechecked: 85/58. positioned pt on the chair and elevated LE. BP: 106/57. call light and table placed within reach. Gait Assessment Gait Gait Assistance Required: Contact Guard Assist,Minimum Assistance Distance (Feet) 20 Able to Maintain Weight Bearing Status Yes During Gait Assistive Devices Assistive Device None,Gait Belt,Front Wheeled Walker Orthotic/Prosthetic Devices or Brace: No Gait Deviations General Gait Pattern Antalgic,Ataxic,Decreased Stride Length,Decreased Feet Clearance Factors Limiting Gait Function Factors Limiting Gait Function Decreased Activity Tolerance, Decreased Strength,Limited Range of Motion,Poor Balance, Poor Safety Awareness PT-Balance Assessment Sitting Balance and Reactions Static Sitting Balance Ability Normal Dynamic Sitting Balance Ability Good Standing Balance and Reactions Static Standing Balance Ability Fair Dynamic Standing Balance Ability Fair Device Used without AD M5 PT-IP Objective Assessments Start: 09/05/24 12:10 Freq: NEEDED Status: Active Protocol: Document 09/05/24 11:05 AB (Rec: 09/05/24 12:31 AB [id number]) Orientation Orientation/Cognition Level of Alertness Alert Orientation Name,Place,Situation Language Function Ability No Deficits Noted Safety Awareness Decreased Safety Awareness Memory Description No Deficits Noted Gross Range of Motion Lower Extremity ROM Assessment Within Functional Limits Strength Lower Extremity Strength Assessment Within Functional Limits Muscle Tone Muscle Tone WNL Yes M6 PT-IP Treatment Start: 09/05/24 12:10 Freq: NEEDED Status: Active Protocol: Document 09/05/24 11:05 AB (Rec: 09/05/24 12:31 AB [id number]) Physical Therapy Treatment Education Education Provided Safety M7 PT-IP Assessment and Plan Start: 09/05/24 12:10 Freq: NEEDED Status: Active Protocol: Document 09/05/24 11:05 AB (Rec: 09/05/24 12:31 AB [id number]) PT Summary Assessment and Plan Potential Rehabilitation Potential Fair Status of Condition at Evaluation Stable Summary Impairments Strength,Balance,Bed Mobility, Transfers,Gait,Activity Tolerance Assessment Summary pt is an 79 y/o M who is admitted for seizure. pt requiring min A for ambulation without AD. presents with unsteady antalgic gait. recommending use of FWW at this time. pt needed CGA with use of FWW for ambulation. pt stated that spouse will be able to assist him at home. will continue to assess progress. Goals Bed Mobility Goal Independent Transfer Goal Independent Gait Goal Independent Gait Distance 200 Other Goals up/down 1 step using LRAD/ without AD SBA Days to Meet Goals 10 Frequency of Treatment Frequency Of Treatment Once a Day Treatment Plan Physical Therapy Treatment Plan Bed Mobility Training,Transfer Training,Gait Training, Therapeutic Exercise,Balance Retraining,Discharge Planning, Hot or Cold Pack,Neuromuscular Re-ed,Coordination Retraining Precautions Other Precautions contact precautions: suspected norovirus Recommendations To Nursing Amount of Assist Needed 1 Person Assist Discharge Recommendations PT Discharge Recommendations Home with Assistance, Outpatient PT Equipment Needed for Home Before FWW if not safe without AD Discharge Transportation Needs at Discharge Private Vehicle - PT assist 1
[2024-09-05 16:47] LABS: Adenovirus F 40/41 Not Detected (Not Detect); Astrovirus Not Detected (Not Detect); Campylobacter Not Detected (Not Detect); Clostridium difficile toxin AB Not Detected (Not Detect); Cryptosporidium Not Detected (Not Detect); Cyclospora cayetanensis Not Detected (Not Detect); Entamoeba histolytica Not Detected (Not Detect); Enteroaggregative E.coli Not Detected (Not Detect); Enteropathogenic E.coli Not Detected (Not Detect); Enterotoxigenic E.coli It/st Not Detected (Not Detect); Giardia lamblia Not Detected (Not Detect); Norovirus GI/GII Detected (Not Detect); Plesiomonsa shigelloides Not Detected (Not Detect); Rotavirus A Not Detected (Not Detect); Salmonella Not Detected (Not Detect); Sapovirus Not Detected (Not Detect); Shiga-like toxin-prod E.coli Not Detected (Not Detect); Shigella/Enteroinvasive E.coli Not Detected (Not Detect); Vibrio Not Detected (Not Detect); Vibrio cholerae Not Detected (Not Detect); Yersinia enterocolitica Not Detected (Not Detect)
[2024-09-05] MEDS: SODIUM CHLORIDE 0.9% 500 ML 1000 ML IV (17:14)
[2024-09-05] MEDS: SODIUM CHLORIDE 0.9% 1,000 ML 125 ML IV (18:13)
[2024-09-05] MEDS: INSULIN GLARGINE 100 UNIT/ML 3ML PEN 20 UNIT SUBCUT (18:18)
[2024-09-06] VITALS (8 sets, daily range): BP systolic 114–149; BP diastolic 78–94; PULSE 57–78; RESP 15–18; TEMP 36.6–37.2; O2SAT 94–97
[2024-09-06] MEDS: SODIUM CHLORIDE 0.9% 1,000 ML 125 ML IV ×2 (02:15→10:29)
[2024-09-06 06:09] LABS: Add Manual Diff / Slide Review NO; Basophils Absolute Auto 100 /uL (0-100); Basophils Percent Auto 0.5 % (0-2); Eosinophils Absolute Auto 300 /uL (0-450); Eosinophils Percent Auto 2.6 % (2-4); Hematocrit 35.8 % (41-53); Hemoglobin 12.9 g/dL (13.5-17.5); Lymphocytes Absolute Auto 1900 /uL (1100-4500); Lymphocytes Percent Auto 17.4 % (25-40); Mean Corpuscular HGB Conc 35.9 % (30-36); Mean Corpuscular Hemoglobin 35.8 PG (26-34); Mean Corpuscular Volume 99.8 fL (80-100); Monocytes Absolute Auto 1400 /uL (0-900); Monocytes Percent Auto 12.9 % (3-14); Neutrophils Absolute Auto 7200 /uL (1500-7000); Neutrophils Percent Auto 66.6 % (50-75); Platelet Count 186 X10^3/uL (150-400); Red Blood Cell Count 3.59 X10^6/uL (4.5-5.9); Red Cell Distribution Width 13.9 % (11.6-14.8); White Blood Cell Count 10.8 X10^3/uL (4.5-11.0)
[2024-09-06] MEDS: LEVOTHYROXINE 75 MCG TABLET PO (06:10)
[2024-09-06 06:38] LABS: Alanine Aminotransferase 27 IU/L (<50); Albumin 3.4 g/dL (3.5-5.0); Albumin Globulin Ratio 1.4 (1.0-2.8); Alkaline Phosphatase 51 U/L (38-126); Aspartate Aminotransferase 47 IU/L (17-59); BUN Creatinine Ratio 20.1 (6-22); Bilirubin Total 0.9 mg/dL (0.2-1.3); Blood Urea Nitrogen 32 mg/dL (9-20); Calcium 8.3 mg/dL (8.4-10.2); Carbon Dioxide 22 mmol/L (22-32); Chloride 108 mmol/L (98-107); Estimated Glomerular Filt Rate 43 mL/min (>60); Globulin 2.4 g/dL (1.7-4.1); Glucose 91 mg/dL (70-99); HEMOLYSIS < 15 (0-50); Magnesium 1.7 mg/dL (1.6-2.3); Potassium 3.5 mmol/L (3.4-5.1); Sodium 138 mmol/L (137-145); Total Protein 5.8 g/dL (6.3-8.2)
--- NOTE | 2024-09-06 08:29 | P.PN_ITS ---
Subjective Subjective Date Patient Seen: 09/06/24 Time Patient Seen: 08:30 Interval history: Patient seen and evaluated this morning. is at bedside she spent the night with him last night. Patient had a good night up to use the bathroom a few times. He still had some loose stools. He was afebrile over the evening. Blood pressure is much better. He is able to stand. He says he does not need a walker. He says he was hungry in the middle of the night last night he is looking forward to breakfast this morning and wants to eat. O2 sats are normal off oxygen. Reviewed with he and his his MRI scan stool testing magnesium and other blood tests that were done. Exam Vital Signs (past 8 hours): - 09/06/24 02:00 09/06/24 06:00 Temperature 98.9 F 98.9 F Pulse Rate 78 57 L Respiratory Rate 18 18 Blood Pressure 114/80 143/94 H Pulse Oximetry 96 97 Oxygen Flow Rate 0 0 Oxygen Delivery Method Room Air Oxygen Flow Rate 0 Narrative Exam Narrative: Gen.: Alert good historian HEENT: Pupils equal round and reactive or mucosa is moist Cardio: S1-S2 regular rate and rhythm Respiratory: Normal respiratory effort Abdomen: Soft nontender no rebound or guarding Extremities: [Full range of motion no appreciable weakness no cyanosis or edema. Objective Labs 09/06/24 05:20 09/06/24 05:20 Labs: Laboratory Results - last 24 hr 09/05/24 09/05/24 09/06/24 05:51 14:15 05:20 WBC 10.8 RBC 3.59 L Hgb 12.9 L Hct 35.8 L MCV 99.8 MCH 35.8 H MCHC 35.9 RDW 13.9 Plt Count 186 Neut % (Auto) 66.6 Lymph % (Auto) 17.4 L [place] % (Auto) 12.9 Eos % (Auto) 2.6 Baso % (Auto) 0.5 Neut # (Auto) 7200 H Lymph # (Auto) 1900 [place] # (Auto) 1400 H Eos # (Auto) 300 Baso # (Auto) 100 Sodium 138 Potassium 3.5 Chloride 108 H Carbon Dioxide 22 BUN 32 H Creatinine 1.59 H Estimated GFR 43 L BUN/Creatinine Ratio 20.1 Glucose 91 Hemoglobin A1c 6.1 H Calcium 8.3 L Magnesium 1.7 Total Bilirubin 0.9 AST 47 ALT 27 Alkaline Phosphatase 51 Total Protein 5.8 L Albumin 3.4 L Globulin 2.4 Albumin/Globulin Ratio 1.4 Stl C. cayetanensis PCR Not detected Stool Rotavirus (PCR) Not detected Stool Adenovirus (PCR) Not detected Stool Astrovirus (PCR) Not detected Stool Cryptosporidium PCR Not detected Stl E.coli Shiga Tox PCR Not detected St Sh/Enteroin Ecoli PCR Not detected Stl Enterotoxigenic E PCR Not detected Stool EPEC (PCR) Not detected Stl E. histolytica PCR Not detected Stool Giardia Lamblia PCR Not detected Stool Sapovirus (PCR) Not detected Stl P. shigelloides PCR Not detected St Y.enterocolitica PCR Not detected Stool Vibrio (PCR) Not detected Stl Vibrio cholerae PCR Not detected Stl Enteroaggr Ecoli PCR Not detected Stl Norovirus GI/GII PCR Detected Campylobacter (PCR) Not detected C. difficile Tox (PCR) Not detected Salmonella (PCR) Not detected [facility] Medical History (Updated 09/05/24 @ 09:32 by Billy Orona MD) Kidney stones Diabetes mellitus Hypertension Hyperlipidemia Chronic renal failure, stage 2 (mild) Surgical History (Updated 04/21/23 @ 10:20 by Billy Orona MD) History of inguinal hernia repair Status post appendectomy History of vasectomy History of splenectomy History of nephrectomy Family History Mother No problems noted. Social History marital status: household members: spouse Smoking Status: Never smoker alcohol intake: current substance use type: does not use Assessment & Plan Assessment and plan (1) Gastroenteritis: Status: Acute (2) Brain mass: Status: Acute (3) Episode of shaking: Status: Acute Assessment & Plan narrative: Left frontal meningioma patient has a newly diagnosed meningioma 2 cm on MRI scan. Visualized yesterday. Without significant mass effect or midline shift. Potential cause of underlying neurological movement disorder. Event yesterday and they elevate her while coming out from the MRI scan in the wheelchair. Although patient was quite hypotensive at the time. Possible seizure. Patient with seizure-like activity 3 episodes over the last 2 weeks 1 potentially in the emergency department. Patient had another event with the head rolling back while he was in the wheelchair coming up from the MRI. Possible hypotensive related episode. We will continue to monitor for seizure-like activity continue with Keppra 500 mg twice daily. Patient will need outside of hospital EEG and further workup and evaluation. If meningiomas a cause of seizure disorder. Will arrange for outside neurosurgical consultation as well. Gastroenteritis due to norovirus. Patient has had loose stools. Fever and hypotension dehydration associated with this. Fluid bolus last night with IV fluids today. Electrolytes are better as well as kidney function. He is on contact precautions. White blood cell count is better. He is feeling better today not vomiting and morning breakfast and eating. We will continue to keep inpatient to monitor hypotension blood sugar and eating Hypomagnesemia. Resolved after magnesium replacement Insulin dependent diabetes. 20 units of insulin given last night we have this dose due to not eating well yesterday. Blood sugars were good overnight. Will continue with insulin sliding scale and river insulin coverage with normal dosing tonight. CKD stage IIIB. Monitor electrolytes kidney function. Currently stable. Avoid nephrotoxic drugs. Hypertension. Patient was hypotensive yesterday blood pressure medication was held. Will continue his blood pressure medication and fluid management. Hyperlipidemia. Patient will be continued on his statin medication. DVT prophylaxis with Lovenox Code full code Disposition and plan. Physical therapy today. Work on eating. Monitor blood pressure continue with seizure medication. MRI reviewed. Patient will be able to be discharged home. With continued outpatient follow-up will need hospitalization for at least 24 more hours Time-Based Coding :: [TOTAL MINUTES] spent with patient and on the chart (including review of chart, obtaining history, exam, reviewing outside data, placing orders, documenting exam and treatment plan, and counseling patient) on [DATE]. Quality VTE Deep Vein Thrombosis/Pulmonary Embolism Present on Admission: No PROFEE Associate Professor Of Violin Document charge(s): Yes Charge Codes Subsequent inpatient/observation care: [id number]
[2024-09-06] MEDS: ATORVASTATIN 20 MG TABLET 40 MG PO (08:39)
[2024-09-06] MEDS: CHOLECALCIFEROL (VITAMIN D3) 5,000 UNIT TABLET 5000 UNIT PO (08:39)
[2024-09-06] MEDS: METOPROLOL ER 25 MG TABLET PO ×2 (08:40→20:38)
[2024-09-06] MEDS: levETIRAcetam 250 MG TABLET 500 MG PO ×2 (08:40→20:38)
[2024-09-06] MEDS: ENOXAPARIN 40 MG/0.4 ML SYRINGE SUBCUT (08:40)
[2024-09-06] MEDS: LOSARTAN 50 MG TABLET PO (08:40)
[2024-09-06] MEDS: SODIUM CHLORIDE 0.9% FLUSH 10 ML IV ×2 (08:40→20:39)
--- NOTE | 2024-09-06 09:28 | PT.IPTN ---
Addendum entered and electronically signed by Tracy Cordova PT 09/06/24 10:20: AUTO BODY REPAIR ESTIMATOR student Lisa Barrow directly supervised and directed by this PT. Original Note: Current Diagnoses Other specified disorders of brain (09/04/24) Noninfective gastroenteritis and colitis, unspecified (09/04/24) Tremor, unspecified (09/04/24) Fever, unspecified (09/04/24) Physical Therapy Treatment Note M2 PT-IP Current Condition Start: 09/05/24 12:10 Freq: NEEDED Status: Active Protocol: Document 09/06/24 09:28 PG (Rec: 09/06/24 10:08 PG Laptop) Physical Therapy Current Condition Current Condition Evaluation Date 09/05/24 Treatment Diagnosis seizure; difficulty in walking Onset Date 09/04/24 M3 PT-IP Subjective Start: 09/05/24 12:10 Freq: NEEDED Status: Active Protocol: Document 09/06/24 09:28 PG (Rec: 09/06/24 10:08 PG Laptop) Subjective Physical Therapy Visit Type Type Treatment Note Visit Start Time 09:01 Visit Stop Time 09:28 Number of AUTO BODY REPAIR ESTIMATOR Visits 0 Physical Therapy Visit Comments Patient Comments Pt states he was feeling fine, no dizziness. present and looking forward to him going home. M4 PT-IP Mobility and Gait Start: 09/05/24 12:10 Freq: NEEDED Status: Active Protocol: Document 09/06/24 09:28 PG (Rec: 09/06/24 10:08 PG Laptop) PT-Transfer Assessment Sit to and From Stand Sit to and from Stand Standby Assistance,Use of Upper Extremities Equipment Transfer Assistive Device Gait Belt Orthotic/Prosthetic Devices or Brace: No Comments Mobility Comments pt was sitting in chair and stood with SBA, BP 137/83 O2 = 94%, pt ambulated contact guard due to concern with previous episode of LOC but showed good steadiness and was able to turn without LOB. Pt was able to go into the restroom, was able to don and doff his brief and was independent with wiping. Pt left in chair with call light in reach. Gait Assessment Gait Gait Assistance Required: Contact Guard Assist Distance (Feet) 100 Able to Maintain Weight Bearing Status Yes During Gait Assistive Devices Assistive Device None,Gait Belt Orthotic/Prosthetic Devices or Brace: No Gait Deviations General Gait Pattern Within Normal Limits Factors Limiting Gait Function Factors Limiting Gait Function Decreased Activity Tolerance Stair Climbing Assessment Evaluation Level of Assist On Stairs Contact Guard Assistance Comments Stair Climbing Comments Pt was able to complete 10 step ups/down on a 8inch step with wall/ledge in room, CGA. M5 PT-IP Objective Assessments Start: 09/05/24 12:10 Freq: NEEDED Status: Active Protocol: Document 09/05/24 11:05 AB (Rec: 09/05/24 12:31 AB [id number]) Orientation Orientation/Cognition Level of Alertness Alert Orientation Name,Place,Situation Language Function Ability No Deficits Noted Safety Awareness Decreased Safety Awareness Memory Description No Deficits Noted Gross Range of Motion Lower Extremity ROM Assessment Within Functional Limits Strength Lower Extremity Strength Assessment Within Functional Limits Muscle Tone Muscle Tone WNL Yes M6 PT-IP Treatment Start: 09/05/24 12:10 Freq: NEEDED Status: Active Protocol: Document 09/06/24 09:28 PG (Rec: 09/06/24 10:08 PG Laptop) Physical Therapy Treatment Education Education Provided Safety Other Treatments Other Treatment Performed Discussed using walker if needed at home and confirmed they have one. Pt completed standing marches x10 bilat and x5 sit <> stands with CGA. M7 PT-IP Assessment and Plan Start: 09/05/24 12:10 Freq: NEEDED Status: Active Protocol: Document 09/06/24 09:28 PG (Rec: 09/06/24 10:08 PG Laptop) PT Summary Assessment and Plan Summary Assessment Summary Pt was able to ambulate around room for an extended distance compared to yesterday with no AD and CGA for precautions. Was able to complete step ups, standing marches and 5x sit < > stand activities with 1 break. Only limitation is decreased activity tolerance. Goals Bed Mobility Goal Independent Transfer Goal Independent Gait Goal Independent Gait Distance 200 Other Goals up/down 1 step using LRAD/ without AD SBA Days to Meet Goals 10 Frequency of Treatment Frequency Of Treatment Once a Day Treatment Plan Physical Therapy Treatment Plan Bed Mobility Training,Transfer Training,Gait Training, Therapeutic Exercise,Balance Retraining,Discharge Planning, Hot or Cold Pack,Neuromuscular Re-ed,Coordination Retraining Other Recommendations and Next Treatment Work on activity tolerance and Focus functional balance for return home. Precautions Other Precautions contact precautions: norovirus Recommendations To Nursing Amount of Assist Needed 1 Person Assist Discharge Recommendations PT Discharge Recommendations Home with Assistance, Outpatient PT Transportation Needs at Discharge Private Vehicle - PT assist 1
[2024-09-06] MEDS: POTASSIUM CHLORIDE 20 MEQ TAB PO (10:08)
[2024-09-06] MEDS: MAGNESIUM CHLORIDE 64 MG TABLET 128 MG PO (10:08)
--- NOTE | 2024-09-06 10:18 | CM.DANOTE ---
Initial DCP Assessment Visit Note Reviewed EMR and team rounds for status updates. Met with pt/spouse at bedside to introduce self and role, pt was found to be alert/oriented, able to engage in discussion w/OIL SEPARATOR, and shared that he is feeling much improved, will have an EGG scheduled OP prior to d/c. Pt resides independently in his own home w/spouse here in [place]. His will transport him back home, likely later this afternoon. Payor: Medicare PCP: Dr. Orona Pt is a 79 year-old M who presented to the ED with c/o having experienced several episodes of his eyes rolling b ack in his head and collapsing. He had refused EMS intervention for the first 2-times, however what seems like siezure activity continued, thus he agreed to be evaluated in the ED. shared that she had just arrived home a few days ago after going on a cruise with other family members, and all family on the trip acquired Norovirus. Pt is also c/o explosive diarrhea, N/V, cultures resulted positive for Norovirus. Brain MRI did reveal an incidental brain lesion measuring about 2-inches. Consultation was done and it was determined that the lesion was too small to have pt transferred out, and that it was likely a menengioma that will need further OP f/u after d/c. DCP will continue to monitor for any further evolving d/c needs, although pt/spouse are declining any CM d/c assistance needs at this time. Discharge Planning/Care Management Advanced directive, confirm from FAMILY Start: 09/05/24 00:44 Freq: Q24H Status: Complete Protocol: Document 09/05/24 00:44 MP (Rec: 09/05/24 01:09 MP [id number]) Advance Directive, confirm on record Time 00:44 Person contacted Cathi Mayer Copy received No CM Discharge Assessment Start: 09/06/24 10:17 Freq: Status: Active Protocol: Document 09/06/24 10:17 DPL (Rec: 09/06/24 10:18 DPL [id number]) Discharge Planning Assessment Assigned Pipe And Boiler Covers Supervisor ALONSO Castrejon Advance Directives? Yes Advance Directives on File No History Provided By Patient,Family Member,Medical Record Has Patient been admitted in last 30 No days? Prior Living Arrangements House Household Members spouse Type of transporation used prior to Drives own vehicle admit Willing to Return to Facility? No Independent with ADL's Yes Is patient alert and oriented? Yes Caregiver for Another No Comment N/A Comment No identified home d/c needs at this time. Barriers to Discharge No Discharge Plan Home Transportation Arrangement Spouse Referrals Initiated None needed Whiteboard Updated in Patient Room with Yes name and ext. # of Pipe And Boiler Covers Supervisor Review Status In Process Please Provide Date Initial DC 09/06/24 Assessment Was Performed
[2024-09-06] MEDS: INSULIN GLARGINE 100 UNIT/ML 3ML PEN 20 UNIT SUBCUT (17:02)
[2024-09-07] VITALS: BP 122/66; PULSE 66; TEMP 36.6; O2SAT 98
[2024-09-07 04:00] VITALS: BP 131/68; PULSE 70; TEMP 36.8; O2SAT 95
[2024-09-07 04:36] LABS: BUN Creatinine Ratio 19.2 (6-22); Blood Urea Nitrogen 25 mg/dL (9-20); Calcium 8.5 mg/dL (8.4-10.2); Carbon Dioxide 20 mmol/L (22-32); Chloride 113 mmol/L (98-107); Estimated Glomerular Filt Rate 55 mL/min (>60); Glucose 109 mg/dL (70-99); HEMOLYSIS < 15 (0-50); Magnesium 1.7 mg/dL (1.6-2.3); Potassium 3.9 mmol/L (3.4-5.1); Sodium 139 mmol/L (137-145)
[2024-09-07 04:51] LABS: Add Manual Diff / Slide Review NO; Basophils Absolute Auto 100 /uL (0-100); Eosinophils Absolute Auto 500 /uL (0-450); Eosinophils Percent Auto 6.1 % (2-4); Hematocrit 34.1 % (41-53); Hemoglobin 12.1 g/dL (13.5-17.5); Lymphocytes Absolute Auto 1700 /uL (1100-4500); Mean Corpuscular HGB Conc 35.5 % (30-36); Mean Corpuscular Hemoglobin 35.7 PG (26-34); Mean Corpuscular Volume 100.6 fL (80-100); Monocytes Absolute Auto 900 /uL (0-900); Monocytes Percent Auto 11.9 % (3-14); Neutrophils Absolute Auto 4800 /uL (1500-7000); Platelet Count 183 X10^3/uL (150-400); Red Blood Cell Count 3.39 X10^6/uL (4.5-5.9); Red Cell Distribution Width 13.4 % (11.6-14.8); White Blood Cell Count 7.9 X10^3/uL (4.5-11.0)
[2024-09-07] MEDS: LEVOTHYROXINE 75 MCG TABLET PO (06:00)
[2024-09-07 08:00] VITALS: BP 143/82; PULSE 49; RESP 15; TEMP 36.4; O2SAT 96
--- NOTE | 2024-09-07 08:28 | P.DS_ITS ---
History of Present Illness History of Present Illness Chief complaint: vomiting, eyes rolling in back of head, seizures? Narrative: 79-year-old male with a past medical history insulin-dependent diabetes chronic kidney disease hypothyroidism hypertension hyperlipidemia presents to the emergency department with episodes of eyes rolling back in his head nausea and tremors. Patient presented to the emergency department by his . History is as follows. Patient is good historian his helps provide the history as well 2 weeks ago his got back from a cruise. Patient had an episode at home while she was gone with her son. The son states he was sitting in the chair his eyes rolled up in the back of his head his face went kind of blank he had quivering inch tremors a little bit of his face. This lasted for about 30 seconds his son was worried enough that he laid him on the ground and called 911. Patient was evaluated at that time his blood pressure and vitals were good. Had no blood sugar problems. Patient was feeling fine and did not want to be re-evaluated there was no loss of consciousness during this episode. The patient then had a similar episode 1 week later. And then a similar episode on Tuesday. They were concerned enough at this point to come in. Each episode described was for 30-60 seconds. His eyes began to roll up in his head he had some facial blank Jin quivering some nausea. Patient did not lose bladder or bowel incontinence did not have loss of consciousness. Patient's vital signs were stable during this episode no chest pain during this episode patient is aware of these happening. His on the cruise that she went on sounds like got gastroenteritis. Came home with that. Over the last 24-48 hours patient has been having episodes of what he describes as nausea of vomiting and explosive diarrhea. He had an event similar to this in the bathroom in the emergency department. In the emergency department laboratory testing was done advanced imaging was done. In the emergency department patient has stable vital signs but ultimately had a fever of 103. He had had an episode of eye twitching eyes rolling back up in his had facial muscle changes and was given Ativan and loaded with Keppra. His blood work shows mild elevation of white blood cell count chest x-ray shows no infection urine culture and urinalysis shows no infection stool culture is pending. Patient did not have a procalcitonin blood cultures are pending. Patient also has stool cultures are pending. Patient had a CT head and CT angiogram of neck. Patient had a meningioma that was found on his CT scan. Patient had a consultation with the neuro team. Who recommended admission seizure prophylaxis and advanced imaging. During the hospital stay last night patient states he is doing well know what he describes his seizure activity. His vital signs have been stable from blood pressure and pulse standpoint but he has had a low-grade temp of a 100? 1-103. He has had no further episodes of diarrhea he has a little bit tachycardic. He is oxygenating well on 2 L. during the emergency department he was given Ativan Keppra magnesium and IV fluids. Discharge Providers Provider Date of admission: 09/04/24 23:21 Discharge Date: 09/07/24 Primary care physician: Billy Orona MD Consults: 09/05/24 09:48 Consult to Physical Therapy Evaluate & Treat Comment: Physician Instructions: Evaluate and Treat Discharge provider: Billy Orona MD Summary Hospital Course Discharge Diagnosis: Left frontal meningioma 2 cm in diameter New onset seizure probable Gastroenteritis acute with norovirus Dehydration with hypotension Hypomagnesemia Insulin-dependent diabetes type 2 Chronic kidney disease IIIb Hypertension Hyperlipidemia Hospital Course: Patient was admitted to the hospital because of weakness and multiple episodes over 2-3 weeks of concerning neurological symptoms include eyes rolling up in his head shaking weakness. Two episodes where an ambulance was called patient elected not to go to the hospital. Patient had a further episode and was brought to the hospital. His also recently came home from a cruise where she ended up with gastroenteritis her had similar symptoms of nausea and liquid diarrhea. Patient was hospitalized. Had workup with CT scan CT angiogram MRI telemetry monitoring blood sugar monitoring electrolyte monitoring and kidney and liver function testing etc.. During the hospital stay patient had confirmed new diagnosis of a frontal meningioma proximally 3 cm in diameter on MRI. On returned from the MRI patient had again a shaking episode with eyes rolling up in his head consistent with possible seizure. The patient also was quite hypotensive due to dehydration and a diagnosis of norovirus. Initially he did not have much appetite with nausea and diarrhea. During the hospital stay that improved. On the time of discharge she was eating tolerating his diet bowel movements were still loose but lessened. He also had a fever with some mild leukocytosis and that resolved while he was here in the hospital. During the hospital stay he was given Keppra IV and then started on oral Keppra 500 mg twice daily for possible seizures. He will have neurosurgical consultation for his new diagnosis of meningioma we will arrange for outside hospital EEG and he will be continue with Keppra. Patient will be discharged home under the capable hands of his . They will monitor for seizure-like activity advance diet as tolerated they will follow up with me next week Time Spent with Patient Time spent: Greater than 30 minutes Exam Vital Signs (past 8 hours): - 09/07/24 04:00 09/07/24 08:00 Temperature 98.3 F 97.5 F L Pulse Rate 70 49 L Respiratory Rate 15 Blood Pressure 131/68 143/82 H Pulse Oximetry 95 96 Oxygen Flow Rate 0 Oxygen Delivery Method Room Air Oxygen Flow Rate 0 Objective Labs 09/07/24 04:09 09/07/24 04:09 Labs: Laboratory Results - last 24 hr 09/07/24 04:09 WBC 7.9 RBC 3.39 L Hgb 12.1 L Hct 34.1 L MCV 100.6 H MCH 35.7 H MCHC 35.5 RDW 13.4 Plt Count 183 Neut % (Auto) 60.0 Lymph % (Auto) 21.0 L [place] % (Auto) 11.9 Eos % (Auto) 6.1 H Baso % (Auto) 1.0 Neut # (Auto) 4800 Lymph # (Auto) 1700 [place] # (Auto) 900 Eos # (Auto) 500 H Baso # (Auto) 100 Sodium 139 Potassium 3.9 Chloride 113 H Carbon Dioxide 20 L BUN 25 H Creatinine 1.30 H Estimated GFR 55 L BUN/Creatinine Ratio 19.2 Glucose 109 H Calcium 8.5 Magnesium 1.7 PFSH Medical History (Updated 09/05/24 @ 09:32 by Billy Orona MD) Kidney stones Diabetes mellitus Hypertension Hyperlipidemia Chronic renal failure, stage 2 (mild) Surgical History (Updated 04/21/23 @ 10:20 by Billy Orona MD) History of inguinal hernia repair Status post appendectomy History of vasectomy History of splenectomy History of nephrectomy Family History Mother No problems noted. Social History marital status: household members: spouse Smoking Status: Never smoker alcohol intake: current substance use type: does not use Discharge Plan Discharge Plan Patient Disposition: Home Provider Discharge Comment: Discharge home today follow up with Dr. Orona on . Prescription for Keppra sent to his pharmacy. Patient will need [id number] EEG and neuro surgical consultation. Patient is directed to advance his diet slowly due to recent norovirus work on keeping well hydrated. Patient is strongly encouraged not to drive until we have further workup and evaluation of his potential seizure disorder. Nursing Discharge Comment: Patient is not allowed to drive Discharge orders & Medications Prescriptions: New levetiracetam [Keppra] 500 mg tablet 500 mg PO BID Qty: 60 1RF Continued cholecalciferol (vitamin D3) 125 mcg (5,000 unit) capsule 125 mcg PO DAILY (DME) Pen needles See Rx Instructions .Route .MEDSUPPLY Qty: 100 5RF Rx Instructions: As directed daily with lantus solostar epinephrine 0.3 mg/0.3 mL auto-injector 0.3 mg IM Q5-15M PRN (Reason: anaphylaxis) Qty: 2 2RF Rx Instructions: do not exceed 3 doses per episode losartan 50 mg tablet 50 mg PO DAILY Qty: 90 3RF levothyroxine 75 mcg tablet 75 mcg PO DAILY Qty: 90 3RF (DME) DISABLED PARKING PERMIT See Rx Instructions .ROUTE .MEDSUPPLY Qty: 1 0RF Rx Instructions: I find this patient to be medically disabled and qualified for disabled parking as indicated, and signed, on the accompanying Disabled Parking Application for Individuals. insulin glargine 100 unit/mL (3 mL) insulin pen 40 unit SUBCUT QPM Qty: 15 6RF (DME) pen needle, diabetic [TRUEplus Pen Needle] 32 gauge x 5/32 needle See Rx Instructions .ROUTE .COMPLEX Qty: 100 11RF Dose Instruction: USE directed daily with lantus solostar Rx Instructions: USE directed daily with lantus solostar metoprolol succinate 25 mg tablet extended release 24 hr 25 mg PO BID Qty: 180 3RF atorvastatin 40 mg tablet 40 mg PO DAILY Qty: 90 3RF hydrochlorothiazide 25 mg tablet 25 mg PO DAILY Adult Low Dose Aspirin tablet 81 mg PO 3XW Follow up/Referrals: Billy Orona MD [Primary Care Provider] - Visit Report/Discharge Packet Stand Alone Forms: Patient Portal/API, Stroke Signs & Symptoms Discharge Data Primary Care Provider: Billy Orona VTE Deep Vein Thrombosis/Pulmonary Embolism Present on Admission: No IH PROFEE Charge Codes Discharge inpatient/observation: [id number]
[2024-09-07] MEDS: ENOXAPARIN 40 MG/0.4 ML SYRINGE SUBCUT (09:28)
[2024-09-07] MEDS: METOPROLOL ER 25 MG TABLET PO (09:28)
[2024-09-07] MEDS: ATORVASTATIN 20 MG TABLET 40 MG PO (09:28)
[2024-09-07] MEDS: levETIRAcetam 250 MG TABLET 500 MG PO (09:28)
[2024-09-07] MEDS: CHOLECALCIFEROL (VITAMIN D3) 5,000 UNIT TABLET 5000 UNIT PO (09:28)
[2024-09-07] MEDS: LOSARTAN 50 MG TABLET PO (09:29)
[2024-09-07] MEDS: MAGNESIUM CHLORIDE 64 MG TABLET 128 MG PO (09:53)
--- NOTE | 2024-09-07 10:10 | CM.DPNOTE ---
DCP Continued: Reviewed EMR and team rounds for pt?s medical status. Per rounds, pt has been medically cleared to discharge home and they have discharge orders placed. No new discharge needs identified at this time. Plan: Anticipating dc home with family to transport. CM Team will continue to follow for coordination of discharge plans. BJORN Hodgson
--- NOTE | 2024-09-07 11:54 | PT-IP ANOTE ---
checked on pt and pt refused PT. pt stated that he is going home and just wants to rest before he goes home.
--- NOTE | 2024-09-07 12:17 | PC.NURSE ---
Pt sitting in chair all morning. Denies any discomfort. Orders for Discharge received LAC & RAC SL D/C intact. Home instructions given w/ understanding Pt escorterd by staff via W/C to waiting vehicle in stable status.
== END 2024-09-07 12:15 | disposition home or self-care (01) | DRG 872 ==
LOC: ED 17:58 → AC 23:21
PROVIDERS: Family Medicine; Admitting Provider Family Medicine; Emergency Provider Emergency Medicine; PCP Family Medicine; Referring Provider Emergency Medicine; Visit Provider Family Medicine
DX: A41.89 Other specified sepsis (principal); A08.11 Acute gastroenteropathy due to Norwalk agent; D32.0 Benign neoplasm of cerebral meninges; R56.9 Unspecified convulsions; E83.42 Hypomagnesemia; N18.32 Chronic kidney disease, stage 3b; E86.0 Dehydration; I95.89 Other hypotension; E11.22 Type 2 diabetes mellitus with diabetic chronic kidney disease; I12.9 Hypertensive chronic kidney disease with stage 1 through stage 4 chronic kidney disease, or unspecified chronic kidney disease; E78.5 Hyperlipidemia, unspecified; Z79.890 Hormone replacement therapy; Z79.4 Long term (current) use of insulin; Z79.82 Long term (current) use of aspirin; Z88.5 Allergy status to narcotic agent; Z90.5 Acquired absence of kidney
CPT/HCPCS: 0241U; 36415; 70450; 70496; 70498; 70553; 71045; 80048; 80053; 81001; 82550; 82962; 83036; 83690; 83735; 83880; 84484; 85007; 85025; 85610; 85730; 87040; 87507; 93005; 96365; 96367; 96375; 97116; 97162; 97530; 99223; 99233; 99239; 99284; 99291; J0696; J1650; J1815; J1953; J2060; J3475; Q9967

== ENCOUNTER → 2025-04-08 07:00 | Outpatient (CLI) | payer MEDICARE, OTHER, SELFPAY ==
[2024-09-05 00:10] VITALS: BMI 29.5
[2025-04-08 07:57] LABS: Hemoglobin A1C% w Est Avg Glu 5.9 % (4.0-6.0)
[2025-04-08 08:07] LABS: Alanine Aminotransferase 34 IU/L (<50); Albumin 4.4 g/dL (3.5-5.0); Albumin Globulin Ratio 1.9 (1.0-2.8); Alkaline Phosphatase 72 U/L (38-126); Blood Urea Nitrogen 24 mg/dL (9-20); Calcium 9.7 mg/dL (8.4-10.2); Carbon Dioxide 25 mmol/L (22-32); Chloride 108 mmol/L (98-107); Cholesterol 178 mg/dL (140-199); Estimated Glomerular Filt Rate 47 mL/min (>60); Globulin 2.3 g/dL (1.7-4.1); Glucose 107 mg/dL (70-99); HDL Cholesterol 47 mg/dL (40-60); HEMOLYSIS < 15 (0-50); Potassium 4.5 mmol/L (3.4-5.1); Sodium 141 mmol/L (137-145); Total Protein 6.7 g/dL (6.3-8.2); Triglycerides 362 mg/dL (35-150)
[2025-04-08 08:10] LABS: Add Manual Diff / Slide Review NO; Hematocrit 41.7 % (41-53); Hemoglobin 14.5 g/dL (13.5-17.5); Lymphocytes Absolute Auto 3200 /uL (1100-4500); Mean Corpuscular HGB Conc 34.8 % (30-36); Mean Corpuscular Hemoglobin 34.9 PG (26-34); Mean Corpuscular Volume 100.3 fL (80-100); Platelet Count 222 X10^3/uL (150-400)
[2025-04-08 08:34] LABS: TSH w/ Reflex to FT4 3.86 uIU/mL (0.47-4.68)
== END ==
PROVIDERS: PCP Family Medicine; Referring Provider Family Medicine; Visit Provider Family Medicine
DX: C77.9 Secondary and unspecified malignant neoplasm of lymph node, unspecified (principal); E11.9 Type 2 diabetes mellitus without complications; N18.30 Chronic kidney disease, stage 3 unspecified
CPT/HCPCS: 36415; 80053; 80061; 83036; 84443; 85025